=== PATIENT | male | born 1990 | race Caucasian/White ===

== ENCOUNTER 2016-10-10 22:35 | Inpatient (IN) ==
[2016-10-10 23:33] LABS: Allen Test Positive
[2016-10-10 23:36] LABS: ABG Base Excess 9.4 MMOL/L (-2.5-2.5); ABG Oxygen Saturation 99.2 % (95-100); ABG PH 7.308 (7.35-7.45); ABG PO2 266.4 MM HG (80-95); ABG TCO2 41.4 MMOL/L (23-27)
[2016-10-10 23:38] LABS: ABG PCO2 79.6 MM HG (35-48)
[2016-10-10 23:40] LABS: Basophils % 0.2 % (0.0-0.8); Eosinophils # 0.2 10*3/uL (0.0-0.87); Eosinophils % 2.8 % (0.00-10.9); Hematocrit 40.8 VOL% (42.0-52.0); Hemoglobin 13.2 GM/DL (14.0-18.0); Immature Granulocytes % 0.2 %; Immature Granulocytes Absolute 0.01 #; Lymphocytes # 1.3 10*3/uL (1.4-4.0); Lymphocytes % 21.5 % (21.2-54.2); Mean Corpuscular HGB Conc 32.4 GM/DL (32-36); Mean Corpuscular Hemoglobin 31 PG (27-34); Mean Corpuscular Volume 96.9 FL (87-102); Mean Platelet Volume 11.5 FL (9.6-12.0); Monocytes # 0.7 10*3/uL (0.11-0.8); Monocytes % 11.8 % (1.7-12.7); Neutrophils # 3.9 10*3/uL (1.4-7.4); Neutrophils % 63.5 % (38.7-73.9); Platelet Count 185 T/CUMM (130-400); Red Blood Count 4.21 MC/CUMM (3.8-5.5); Red Cell Distribution Width 14.5 % (9.3-17.3); White Blood Count 6.1 T/CUMM (4-12)
[2016-10-10 23:49] LABS: Calcium 9.3 MG/DL (8.5-10.1); Magnesium 2.1 MG/DL (1.8-2.4); Osmolality,Calculated 276.7 MOS/KG (273-304); Potassium 4.4 MMOL/L (3.5-5.1)
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
[2016-10-11 00:20] LABS: Troponin I Only 0.066 NG/ML (0.00-0.045)
[2016-10-11] MEDS ORDERED: ACETAMINOPHEN 325 MG TABLET PO PRN (00:37)
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
[2016-10-11 06:56] LABS: Eosinophils # 0.1 10*3/uL (0.0-0.87); Eosinophils % 0.8 % (0.00-10.9); Hematocrit 40.1 VOL% (42.0-52.0); Hemoglobin 13.2 GM/DL (14.0-18.0); Immature Granulocytes % 0.3 %; Immature Granulocytes Absolute 0.04 #; Lymphocytes # 0.9 10*3/uL (1.4-4.0); Lymphocytes % 7.6 % (21.2-54.2); Mean Corpuscular HGB Conc 32.9 GM/DL (32-36); Mean Corpuscular Hemoglobin 32 PG (27-34); Mean Corpuscular Volume 97.1 FL (87-102); Mean Platelet Volume 11.1 FL (9.6-12.0); Monocytes # 1.4 10*3/uL (0.11-0.8); Monocytes % 11.6 % (1.7-12.7); Neutrophils # 9.4 10*3/uL (1.4-7.4); Neutrophils % 79.7 % (38.7-73.9); Platelet Count 178 T/CUMM (130-400); Red Blood Count 4.13 MC/CUMM (3.8-5.5); Red Cell Distribution Width 14.5 % (9.3-17.3); White Blood Count 11.8 T/CUMM (4-12)
[2016-10-11 07:28] LABS: Calcium 9.2 MG/DL (8.5-10.1); Osmolality,Calculated 280.4 MOS/KG (273-304); Potassium 4.4 MMOL/L (3.5-5.1)
[2016-10-11 07:34] LABS: Troponin I Only 0.171 NG/ML (0.00-0.045)
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
--- NOTE | 2016-10-11 07:54 | XRay Report ---
History: Shortness of breath Date: 10/11/2016 Study: Chest x-ray AP portable Comparison exam: 10/10/2016 There is some minor strandy atelectasis/infiltrate in the left retrocardiac region which is slightly increased. The lungs and pleural spaces are otherwise unchanged. There is marked elevation of the right hemidiaphragm which could be related to diaphragmatic paralysis or hernia as discussed previously. The cardiomediastinal silhouette is unchanged. The pulmonary vasculature is not engorged. Osseous structures are unchanged. Spinal rods overlie the thoracolumbar levels where visualized as before. Impression: Slightly increased left lower lobe atelectasis compared to the previous study. Otherwise unchanged PROCEDURE INTERPRETED AT [facility] DEPARTMENT OF RADIOLOGY Final Report Signed by: Dr. Marissa Silva
[2016-10-11 09:16] LABS: ABG Base Excess 10.3 MMOL/L (-2.5-2.5); ABG Oxygen Saturation 96.5 % (95-100); ABG PH 7.341 (7.35-7.45); ABG PO2 91.4 MM HG (80-95); ABG TCO2 34.9 MMOL/L (23-27); Allen Test Positive
[2016-10-11 09:18] LABS: ABG PCO2 73.4 MM HG (35-48)
[2016-10-11] MEDS: DIVALPROEX SPRINKLE 125 MG CAPSULE PO SCH ×2 (09:53→21:02)
[2016-10-11] MEDS: amLODIPine 2.5 MG TABLET PO SCH ×2 (09:55→18:16)
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
--- NOTE | 2016-10-11 10:03 | EKG Report ---
Stationary ECG Study [facility] ER Test Date: 10/10/2016 10:47:56 PM Pat Name: DANIS NICHOLE Department: Room: 516 Gender: M Office Aide: : 1990 Requested by: Jyay Woodward Order Number: [id number] Reading MD: CARMELINA HERRERA Intervals [place] Rate: 97 P: 38 VA: 138 QRS: 93 QRSD: 82 T: 83 QT: 326 QTc: 381 Interpretive Statements SINUS RHYTHM BORDERLINE RIGHT AXIS DEVIATION EARLY REPOLARIZATION Electronically Signed On 10-13-16 15:42:00 CDT by CARMELINA HERRERA [email or web address]
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
[2016-10-11 13:10] LABS: Troponin I Only 0.065 NG/ML (0.00-0.045)
[2016-10-11] MEDS: acetaZOLAMIDE 250 MG TABLET PO SCH (13:14)
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
[2016-10-12 03:20] LABS: Allen Test Positive
[2016-10-12 03:27] LABS: ABG Base Excess 8.7 MMOL/L (-2.5-2.5); ABG HCO3 32.4 MMOL/L (20-26); ABG Oxygen Saturation 95.6 % (95-100); ABG PH 7.261 (7.35-7.45); ABG PO2 88.4 MM HG (80-95); ABG TCO2 35.9 MMOL/L (23-27)
[2016-10-12 04:15] LABS: ABG PCO2 89.5 MM HG (35-48)
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
[2016-10-12] MEDS: acetaZOLAMIDE 250 MG TABLET PO SCH (10:09)
[2016-10-12] MEDS: amLODIPine 2.5 MG TABLET PO SCH (10:09)
[2016-10-12] MEDS: DIVALPROEX SPRINKLE 125 MG CAPSULE PO SCH ×2 (10:09→20:55)
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
[2016-10-12 16:11] LABS: ABG Base Excess 9.9 MMOL/L (-2.5-2.5); ABG HCO3 39.5 MMOL/L (20-26); ABG Oxygen Saturation 94.2 % (95-100); ABG PH 7.304 (7.35-7.45); Allen Test Positive
[2016-10-12 16:12] LABS: ABG PCO2 81.4 MM HG (35-48)
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
[2016-10-13 03:50] LABS: ABG Base Excess 8.9 MMOL/L (-2.5-2.5); ABG HCO3 32.6 MMOL/L (20-26); ABG PH 7.338 (7.35-7.45); ABG TCO2 33.6 MMOL/L (23-27); Allen Test Positive; Pt O2 Delivery Device BIPAP
[2016-10-13 04:03] LABS: ABG PCO2 70.1 MM HG (35-48)
[2016-10-13 06:08] LABS: Basophils % 0.1 % (0.0-0.8); Eosinophils # 0.1 10*3/uL (0.0-0.87); Eosinophils % 1.8 % (0.00-10.9); Hematocrit 37.4 VOL% (42.0-52.0); Hemoglobin 11.9 GM/DL (14.0-18.0); Immature Granulocytes % 0.4 %; Immature Granulocytes Absolute 0.03 #; Lymphocytes # 1.4 10*3/uL (1.4-4.0); Lymphocytes % 18.7 % (21.2-54.2); Mean Corpuscular HGB Conc 31.8 GM/DL (32-36); Mean Corpuscular Hemoglobin 32 PG (27-34); Mean Corpuscular Volume 98.9 FL (87-102); Mean Platelet Volume 11.9 FL (9.6-12.0); Monocytes # 1.2 10*3/uL (0.11-0.8); Monocytes % 15.7 % (1.7-12.7); Neutrophils # 4.6 10*3/uL (1.4-7.4); Neutrophils % 63.3 % (38.7-73.9); Platelet Count 170 T/CUMM (130-400); Red Blood Count 3.78 MC/CUMM (3.8-5.5); Red Cell Distribution Width 14.8 % (9.3-17.3); White Blood Count 7.3 T/CUMM (4-12)
[2016-10-13 06:33] LABS: Eosinophils 2 % (0-10); Hypochromasia 1+; Lymphocytes 11 % (20-55); Ovalocytes Slight; Platelet Estimate Normal; Segmented Neutrophils 74 % (50-85); Total Cells Counted 100
[2016-10-13 06:39] LABS: Calcium 8.8 MG/DL (8.5-10.1); Magnesium 2.1 MG/DL (1.8-2.4); Osmolality,Calculated 280.5 MOS/KG (273-304); Potassium 4.3 MMOL/L (3.5-5.1)
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
--- NOTE | 2016-10-13 08:21 | XRay Report ---
XR chest 1V portable Indication: Pneumonia, hypoxia Comparison: None Technique: Single frontal view of the chest. Findings: The cardiomediastinal silhouette is stable in configuration. Continued prominence of the pulmonary trunk suggesting pulmonary arterial hypertension. Minimal increased aeration of the bilateral lungs. There is significant volume loss redemonstrated within the right lung with right infrahilar/basilar atelectasis/consolidation. Minimal left basilar atelectasis suggested. Visualized osseous and surrounding soft tissue structures appear grossly unchanged. Multilevel spinal hardware. IMPRESSION: As above. PROCEDURE INTERPRETED AT [facility] DEPARTMENT OF RADIOLOGY Final Report Signed by: Dr Silver Jonas
[2016-10-13] MEDS: amLODIPine 2.5 MG TABLET PO SCH (09:07)
[2016-10-13] MEDS: DIVALPROEX SPRINKLE 125 MG CAPSULE PO SCH (09:07)
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
[2016-10-13 11:30] VITALS: BP 114/66
--- NOTE | 2016-10-13 13:10 | Sleep Medicine Progress Note ---
Assessment and Plan (1) Chronic CO2 retainer Status: Chronic Assessment and plan: Patient seems to benefit from trilogy respiratory therapy for his chronic respiratory failure from both restrictive lung disease from neuromuscular disease, scoliosis, and paralyzed right hemidiaphragm. Follow-up will be with Dr. Montalvo. End-tidal CO2 monitoring can be done through [facility] on follow-up. Current Visit: Yes Sleep Medicine Subjective Interval history: Patient slept with trilogy over 6 hours last night. According to his mom, he slept very well. She was surprised at how well he slept with it. This is certainly very encouraging. This device should help significantly with his chronic respiratory failure and could be utilized long-term. He has significant underlying health issues of pulmonary hypertension, chronic respiratory failure, neuromuscular disease with a combination of scoliosis and a paralyzed right hemidiaphragm. This therapy may do very well for him. Exam (Progress Note) - Constitutional Vitals: Period Temp Pulse Resp BP Sys/Ya Pulse Ox Last 24 Hr 96.6 F-98.5 F 84-105 18-20 110-124/63-69 89-96 Exam: Alert and responsive and engaging today. Chest exam with fair air movement on the left with no significant rhonchi or wheeze. Cardiac exam reveals a regular rhythm without obvious murmur. Abdomen soft nontender extremities without increased edema. Results - Labs CBC & BMP: 10/13/16 04:35 10/13/16 04:35 Labs: ABGs today show improved oxygenation and decrease in PCO2. This certainly may reflect benefit of trilogy respirator overnight. I would recommend continuing with this therapy indefinitely. He clearly seems to have benefited from this intervention. Specialty Discharge - Follow Up or Referrals
--- NOTE | 2016-10-13 14:20 | Event Note ---
Ronny Tamayo, [facility], acting as scribe for Dr. Johnny Montalvo Mr. Jay is in need of non-invasive mechanical ventilation with full face mask. The ventilator is to be used at [facility] during sleep, as well as during the day as needed. He has a thoracic disorder (scoliosis) and paralysis of the right hemidiaphragm. Due to these diagnoses, he has been experiencing chronic respiratory failure with a PCO2 of 73.4. He has tried Bipap therapy in the past and was not able to tolerate it. He was tried on non-invasive mechanical ventilation last night while in the hospital with AVAPS AE setting and he tolerated this very well. He stayed on the machine for over 6 hours. Because of his toleration of the mode of ventilation, we will discharge him home with the non-invasive ventilator.
== END 2016-10-13 13:10 | disposition home or self-care (01) | DRG 923 ==
LOC: EDBD → EDUNIT# → N.EDINP 22:35 → N.ED 22:35 → SUATTDRO 10-11 01:39 → N.5E 10-11 01:40
PROVIDERS: ADMIT Internal Medicine; ATTEND Internal Medicine

== ENCOUNTER 2017-02-26 07:00 | Inpatient (IN) ==
[2017-02-26] MEDS ORDERED: SENNA 8.6 MG TABLET PO PRN (17:22)
[2017-02-26] MEDS ORDERED: DEXTROSE 50% 25 GM/50 ML VIAL IV PRN (17:32)
[2017-02-26] MEDS ORDERED: DEXTROSE 10% 1,000 ML IV PRN (17:32)
[2017-02-26] MEDS ORDERED: GLUCAGON 1 MG VIAL IM PRN (17:32)
[2017-02-26] MEDS ORDERED: TRACE ELEMENTS (5) 1 ML, MULTIVITAMIN INJ 10 ML in AMINO ACIDS/DEXT/LYTES 5-15% 2,000 ML IV SCH (19:00)
[2017-02-26] MEDS: CEFEPIME 1,000 MG in SYRINGE 1 EACH IV SCH (19:10)
[2017-02-26] MEDS: VALPROIC ACID INJ 250 MG in SODIUM CHLORIDE 0.9% 100 ML IV SCH (20:50)
[2017-02-26] MEDS: CHLORHEXIDINE 0.12% ORAL RINSE 60 ML BOTTLE SWISH/SPIT SCH (21:45)
[2017-02-26] MEDS: PANTOPRAZOLE 40 MG VIAL IV SCH (21:45)
[2017-02-26] MEDS: ACETAMINOPHEN 325 MG/10.15 ML UDCUP PO PRN (21:46)
[2017-02-26] MEDS: INSULIN REGULAR 100 UNIT/ML SUBCUT SCH (23:30)
[2017-02-27] MEDS: CEFEPIME 1,000 MG in SYRINGE 1 EACH IV SCH ×3 (02:08→18:08)
[2017-02-27 05:17] LABS: ABG Base Excess 10.1 MMOL/L (-2.5-2.5); ABG HCO3 33.8 MMOL/L (20-26); ABG Oxygen Saturation 95.4 % (95-100); ABG PCO2 48.2 MM HG (35-48); ABG PO2 74.5 MM HG (80-95); ABG TCO2 32.3 MMOL/L (23-27); Pt O2 Delivery Device Ventilator
[2017-02-27] MEDS: VALPROIC ACID INJ 250 MG in SODIUM CHLORIDE 0.9% 100 ML IV SCH ×3 (05:17→20:14)
[2017-02-27] MEDS: INSULIN REGULAR 100 UNIT/ML SUBCUT SCH ×4 (05:17→23:24)
[2017-02-27 05:21] LABS: Calcium 8.5 MG/DL (8.5-10.1); Magnesium 1.9 MG/DL (1.8-2.4); Osmolality,Calculated 282.4 MOS/KG (273-304); Potassium 4.8 MMOL/L (3.5-5.1); Prealbumin 13.4 MG/DL (20-40)
[2017-02-27 06:52] LABS: Albumin 1.8 G/DL (3.4-5.0); Bilirubin,Direct 0.28 MG/DL (0.0-0.20); Bilirubin,Indirect 0.7 MG/DL (0.0-1.0); Total Protein 5.1 G/DL (6.4-8.3)
[2017-02-27] MEDS: ALBUTEROL/IPRATROPIUM 3 ML NEB RESP TX SCH ×4 (07:09→18:33)
[2017-02-27] MEDS: ZINC OXIDE PASTE 113 GM TUBE TOP PRN (07:09)
[2017-02-27] MEDS: ALBUMIN 25% 25 GM in PREMIX 1 EACH IV SCH ×3 (07:12→22:52)
[2017-02-27 07:43] LABS: Creatinine,Urine Random 122 MG/DL; Urea Nitrogen, Urine Random 1895 MG/DL
[2017-02-27 07:47] LABS: Basophils % 0.2 % (0.0-0.8); Eosinophils # 0.2 10*3/uL (0.0-0.87); Eosinophils % 1.6 % (0.00-10.9); Hematocrit 25.2 VOL% (42.0-52.0); Hemoglobin 8.2 GM/DL (14.0-18.0); Immature Granulocytes % 1.5 %; Immature Granulocytes Absolute 0.17 #; Lymphocytes # 1.1 10*3/uL (1.4-4.0); Lymphocytes % 9.3 % (21.2-54.2); Mean Corpuscular HGB Conc 32.5 GM/DL (32-36); Mean Corpuscular Hemoglobin 29 PG (27-34); Mean Corpuscular Volume 90.3 FL (87-102); Mean Platelet Volume 11.2 FL (9.6-12.0); Monocytes # 1.1 10*3/uL (0.11-0.8); Monocytes % 9.9 % (1.7-12.7); Neutrophils # 8.7 10*3/uL (1.4-7.4); Neutrophils % 77.5 % (38.7-73.9); Platelet Count 564 T/CUMM (130-400); Red Blood Count 2.79 MC/CUMM (3.8-5.5); Red Cell Distribution Width 15.5 % (9.3-17.3); White Blood Count 11.3 T/CUMM (4-12)
[2017-02-27] MEDS: PANTOPRAZOLE 40 MG VIAL IV SCH ×2 (09:53→20:15)
[2017-02-27] MEDS: FLUCONAZOLE INJ 400 MG in PREMIX 1 EACH IV SCH (09:53)
[2017-02-27] MEDS: CHLORHEXIDINE 0.12% ORAL RINSE 60 ML BOTTLE SWISH/SPIT SCH ×2 (09:53→20:15)
[2017-02-27] MEDS: FUROSEMIDE 20 MG/2 ML VIAL IV SCH ×2 (09:53→18:02)
[2017-02-27] MEDS: ACETAMINOPHEN 325 MG/10.15 ML UDCUP PO PRN ×2 (09:55→20:17)
[2017-02-27] MEDS: NYSTATIN POWDER 15 GM BOTTLE TOP SCH ×2 (13:23→20:15)
[2017-02-27] MEDS: DESITIN 4OZ/NYSTATIN 15 GRAM MIXTURE PASTE TOP SCH ×2 (13:23→20:16)
[2017-02-27] MEDS: FAT EMULSION 20% 250 ML IV SCH (14:09)
[2017-02-27] MEDS: ELECTROLYTE IV SCH (20:14)
[2017-02-27] MEDS: MULTIVITAMIN IV SCH (20:14)
[2017-02-27] MEDS: TRACE ELEMENTS IV SCH (20:14)
[2017-02-27] MEDS: [UNRECOGNIZED DRUG - OTHER] IV SCH (20:14)
[2017-02-27] MEDS ORDERED: diphenhydrAMINE 50 MG/1 ML VIAL IV PRN (22:23)
[2017-02-27] MEDS ORDERED: traMADol 50 MG TABLET PO PRN (22:31)
[2017-02-28] MEDS: LORazepam 2 MG/1 ML VIAL IV PRN ×2 (00:06→12:00)
[2017-02-28] MEDS: CEFEPIME 1,000 MG in SYRINGE 1 EACH IV SCH ×3 (01:45→18:12)
[2017-02-28 04:19] LABS: VBG HCO3 33.8 MEQ/L (24-28); VBG Oxygen Saturation 99.2 %; VBG PCO2 35.2 MMHG (41-51); VBG PH 7.576
[2017-02-28 04:24] LABS: Basophils % 0.1 % (0.0-0.8); Eosinophils # 0.2 10*3/uL (0.0-0.87); Eosinophils % 1.6 % (0.00-10.9); Hematocrit 24.9 VOL% (42.0-52.0); Hemoglobin 8.1 GM/DL (14.0-18.0); Immature Granulocytes % 0.7 %; Immature Granulocytes Absolute 0.07 #; Lymphocytes # 1.1 10*3/uL (1.4-4.0); Lymphocytes % 10.8 % (21.2-54.2); Mean Corpuscular HGB Conc 32.5 GM/DL (32-36); Mean Corpuscular Hemoglobin 29 PG (27-34); Mean Corpuscular Volume 88.9 FL (87-102); Monocytes # 1.1 10*3/uL (0.11-0.8); Neutrophils # 7.6 10*3/uL (1.4-7.4); Neutrophils % 75.8 % (38.7-73.9); Platelet Count 538 T/CUMM (130-400); Red Cell Distribution Width 15.3 % (9.3-17.3)
[2017-02-28 04:32] LABS: INR 1.2; PT Patient Result 12.9 SECS
[2017-02-28 04:56] LABS: Calcium 9.2 MG/DL (8.5-10.1); Magnesium 1.7 MG/DL (1.8-2.4); Osmolality,Calculated 280.4 MOS/KG (273-304); Potassium 4.1 MMOL/L (3.5-5.1)
[2017-02-28] MEDS: VALPROIC ACID INJ 250 MG in SODIUM CHLORIDE 0.9% 100 ML IV SCH ×3 (05:08→21:08)
[2017-02-28] MEDS: INSULIN REGULAR 100 UNIT/ML SUBCUT SCH ×3 (05:08→18:11)
[2017-02-28] MEDS: ALBUMIN 25% 25 GM in PREMIX 1 EACH IV SCH ×3 (06:21→23:31)
[2017-02-28] MEDS: ALBUTEROL/IPRATROPIUM 3 ML NEB RESP TX SCH ×4 (08:00→19:18)
[2017-02-28] MEDS ORDERED: ACETAMINOPHEN 325 MG SUPP RECTAL PRN ×2 (08:14→08:21)
[2017-02-28] MEDS ORDERED: ACETAMINOPHEN 650 MG SUPP RECTAL ONE (08:31)
[2017-02-28] MEDS ORDERED: PROPOFOL 200 MG/20 ML VIAL IV ONE (09:00)
[2017-02-28] MEDS ORDERED: LIDOCAINE 100 MG/5 ML SYRINGE ONE (09:00)
[2017-02-28] MEDS: DESITIN 4OZ/NYSTATIN 15 GRAM MIXTURE PASTE TOP SCH (09:00)
[2017-02-28] MEDS: FLUCONAZOLE INJ 400 MG in PREMIX 1 EACH IV SCH (09:50)
[2017-02-28] MEDS: SODIUM CHLORIDE 0.9% 1,000 ML IV SCH (09:51)
[2017-02-28] MEDS: CHLORHEXIDINE 0.12% ORAL RINSE 60 ML BOTTLE SWISH/SPIT SCH ×2 (09:51→21:06)
[2017-02-28] MEDS: PANTOPRAZOLE 40 MG VIAL IV SCH ×2 (09:51→20:42)
[2017-02-28] MEDS: NYSTATIN POWDER 15 GM BOTTLE TOP SCH (09:51)
[2017-02-28] MEDS: FUROSEMIDE 20 MG/2 ML VIAL IV SCH (09:53)
[2017-02-28] MEDS ORDERED: ACETAMINOPHEN 650 MG SUPP RECTAL PRN (10:00)
[2017-02-28] MEDS: fentaNYL 100 MCG/2 ML VIAL IV PRN ×2 (11:59→16:45)
[2017-02-28] MEDS: FAT EMULSION 20% 250 ML IV SCH (15:05)
[2017-02-28 15:07] LABS: Apearance,Urine CLEAR (Clear); Bilirubin,Urine Negative (Negative); Blood, Urine Negative (Negative); Glucose,Urine (UA) Negative (Negative); Ketones,Urine Negative (Negative); Mucus,Urine Occasional /LPF (Occasional); Nitrite,Urine Negative (Negative); Protein,Urine 30 MG/DL; RBC,Urine 6 /HPF (0-4); Urine Specific Gravity 1.033 (1.001-1.035); Urine Urobilinogen < 2.0 EU/DL (0.2-1.0); WBC,Urine 3 /HPF (0-6)
[2017-02-28 15:08] LABS: Urine Color Dark yellow (Yellow)
[2017-02-28] MEDS: ELECTROLYTE IV SCH (17:27)
[2017-02-28] MEDS: MULTIVITAMIN IV SCH (17:27)
[2017-02-28] MEDS: [UNRECOGNIZED DRUG - OTHER] IV SCH (17:27)
[2017-02-28] MEDS: TRACE ELEMENTS IV SCH (17:27)
[2017-02-28] MEDS: ONDANSETRON 4 MG/2 ML VIAL IV PRN (18:13)
[2017-02-28] MEDS: SIMETHICONE CHEW 80 MG TABLET PO SCH ×2 (20:42→23:32)
[2017-03-01] MEDS: CEFEPIME 1,000 MG in SYRINGE 1 EACH IV SCH ×3 (02:25→17:25)
[2017-03-01] MEDS: INSULIN REGULAR 100 UNIT/ML SUBCUT SCH ×2 (02:27→06:55)
[2017-03-01] MEDS: fentaNYL 100 MCG/2 ML VIAL IV PRN ×2 (02:30→19:42)
[2017-03-01] MEDS: LORazepam 2 MG/1 ML VIAL IV PRN ×3 (02:54→15:42)
[2017-03-01 04:28] LABS: VBG Base Excess 5.8 MEQ/L (0-4); VBG Oxygen Saturation 79.8 %; VBG PCO2 49.1 MMHG (41-51); VBG PH 7.418; VBG PO2 41.8 MMHG (17-40)
[2017-03-01 04:33] LABS: Basophils % 0.1 % (0.0-0.8); Eosinophils # 0.2 10*3/uL (0.0-0.87); Eosinophils % 1.8 % (0.00-10.9); Hematocrit 24.3 VOL% (42.0-52.0); Hemoglobin 7.7 GM/DL (14.0-18.0); Immature Granulocytes % 0.7 %; Immature Granulocytes Absolute 0.07 #; Lymphocytes # 0.9 10*3/uL (1.4-4.0); Mean Corpuscular HGB Conc 31.7 GM/DL (32-36); Mean Corpuscular Hemoglobin 29 PG (27-34); Mean Corpuscular Volume 92.7 FL (87-102); Mean Platelet Volume 10.8 FL (9.6-12.0); Monocytes # 1.1 10*3/uL (0.11-0.8); Monocytes % 10.9 % (1.7-12.7); Neutrophils # 7.6 10*3/uL (1.4-7.4); Neutrophils % 77.5 % (38.7-73.9); Platelet Count 526 T/CUMM (130-400); Red Blood Count 2.62 MC/CUMM (3.8-5.5); Red Cell Distribution Width 15.6 % (9.3-17.3); White Blood Count 9.9 T/CUMM (4-12)
[2017-03-01 05:15] LABS: Folate 23.9 NG/ML (5.4-24.0)
[2017-03-01] MEDS: SODIUM CHLORIDE 0.9% 1,000 ML IV SCH ×2 (05:24→21:15)
[2017-03-01] MEDS: VALPROIC ACID INJ 250 MG in SODIUM CHLORIDE 0.9% 100 ML IV SCH ×3 (05:54→21:00)
[2017-03-01] MEDS: DESITIN 4OZ/NYSTATIN 15 GRAM MIXTURE PASTE TOP SCH ×3 (06:35→21:02)
[2017-03-01] MEDS: NYSTATIN POWDER 15 GM BOTTLE TOP SCH ×3 (06:35→21:01)
[2017-03-01] MEDS: ALBUTEROL/IPRATROPIUM 3 ML NEB RESP TX SCH ×4 (08:43→19:42)
[2017-03-01] MEDS: SIMETHICONE CHEW 80 MG TABLET PO SCH ×6 (09:06→21:00)
[2017-03-01] MEDS: PANTOPRAZOLE 40 MG VIAL IV SCH ×2 (09:06→20:59)
[2017-03-01] MEDS: FLUCONAZOLE INJ 400 MG in PREMIX 1 EACH IV SCH (09:06)
[2017-03-01] MEDS: CHLORHEXIDINE 0.12% ORAL RINSE 60 ML BOTTLE SWISH/SPIT SCH ×2 (09:07→21:01)
[2017-03-01] MEDS: ONDANSETRON 4 MG/2 ML VIAL IV PRN ×2 (09:51→20:05)
[2017-03-01 11:20] LABS: Calcium 9.5 MG/DL (8.5-10.1); Magnesium 1.9 MG/DL (1.8-2.4); Osmolality,Calculated 282.4 MOS/KG (273-304); Potassium 4.3 MMOL/L (3.5-5.1)
[2017-03-01] MEDS: IRON SUCROSE 200 MG in SODIUM CHLORIDE 0.9% 100 ML IV SCH (11:36)
[2017-03-01] MEDS: FAT EMULSION 20% 250 ML IV SCH (14:11)
[2017-03-01] MEDS: ALBUMIN 25% 25 GM in PREMIX 1 EACH IV SCH ×2 (15:03→22:26)
[2017-03-01] MEDS ORDERED: DEXTROSE 10% 1,000 ML IV PRN (17:00)
[2017-03-01] MEDS: TRACE ELEMENTS IV SCH (17:26)
[2017-03-01] MEDS: [UNRECOGNIZED DRUG - OTHER] IV SCH (17:26)
[2017-03-01] MEDS: MULTIVITAMIN IV SCH (17:26)
[2017-03-01] MEDS: ELECTROLYTE IV SCH (17:26)
[2017-03-01] MEDS ORDERED: SIMETHICONE CHEW 80 MG TABLET PO PRN (20:26)
[2017-03-01] MEDS: ZINC OXIDE PASTE 113 GM TUBE TOP PRN (21:02)
[2017-03-02] MEDS: LORazepam 2 MG/1 ML VIAL IV PRN ×3 (00:32→20:58)
[2017-03-02] MEDS: CEFEPIME 1,000 MG in SYRINGE 1 EACH IV SCH ×3 (02:38→18:03)
[2017-03-02 02:54] LABS: VBG Base Excess 3.1 MEQ/L (0-4); VBG HCO3 26.9 MEQ/L (24-28); VBG Oxygen Saturation 77.9 %; VBG PCO2 49.6 MMHG (41-51); VBG PH 7.374; VBG PO2 44.1 MMHG (17-40)
[2017-03-02 03:03] LABS: Basophils % 0.1 % (0.0-0.8); Eosinophils # 0.2 10*3/uL (0.0-0.87); Eosinophils % 1.5 % (0.00-10.9); Hematocrit 26.6 VOL% (42.0-52.0); Hemoglobin 8.4 GM/DL (14.0-18.0); Immature Granulocytes % 0.6 %; Immature Granulocytes Absolute 0.06 #; Lymphocytes # 0.9 10*3/uL (1.4-4.0); Lymphocytes % 8.2 % (21.2-54.2); Mean Corpuscular HGB Conc 31.6 GM/DL (32-36); Mean Corpuscular Hemoglobin 30 PG (27-34); Mean Corpuscular Volume 93.7 FL (87-102); Mean Platelet Volume 10.8 FL (9.6-12.0); Monocytes % 9.2 % (1.7-12.7); Neutrophils # 8.3 10*3/uL (1.4-7.4); Neutrophils % 80.4 % (38.7-73.9); Platelet Count 472 T/CUMM (130-400); Red Blood Count 2.84 MC/CUMM (3.8-5.5); Red Cell Distribution Width 15.2 % (9.3-17.3); White Blood Count 10.4 T/CUMM (4-12)
[2017-03-02 03:15] LABS: Magnesium 1.9 MG/DL (1.8-2.4); Osmolality,Calculated 281.4 MOS/KG (273-304); Potassium 3.9 MMOL/L (3.5-5.1)
[2017-03-02] MEDS: VALPROIC ACID INJ 250 MG in SODIUM CHLORIDE 0.9% 100 ML IV SCH ×3 (06:17→20:29)
[2017-03-02] MEDS: ALBUTEROL/IPRATROPIUM 3 ML NEB RESP TX SCH ×4 (07:33→18:32)
[2017-03-02] MEDS: PANTOPRAZOLE 40 MG VIAL IV SCH ×2 (09:49→20:24)
[2017-03-02] MEDS: SIMETHICONE CHEW 80 MG TABLET PO SCH ×4 (09:50→20:29)
[2017-03-02] MEDS: ALBUMIN 25% 25 GM in PREMIX 1 EACH IV SCH ×2 (09:50→18:03)
[2017-03-02] MEDS: NYSTATIN POWDER 15 GM BOTTLE TOP SCH ×2 (09:50→20:30)
[2017-03-02] MEDS: CHLORHEXIDINE 0.12% ORAL RINSE 60 ML BOTTLE SWISH/SPIT SCH ×2 (09:53→20:29)
[2017-03-02] MEDS: FLUCONAZOLE INJ 400 MG in PREMIX 1 EACH IV SCH (09:54)
[2017-03-02] MEDS: IRON SUCROSE 200 MG in SODIUM CHLORIDE 0.9% 100 ML IV SCH (09:54)
[2017-03-02] MEDS: DESITIN 4OZ/NYSTATIN 15 GRAM MIXTURE PASTE TOP SCH ×2 (09:54→20:29)
[2017-03-02] MEDS: ONDANSETRON 4 MG/2 ML VIAL IV PRN ×2 (10:29→20:23)
[2017-03-02] MEDS: FAT EMULSION 20% 250 ML IV SCH (14:19)
[2017-03-02] MEDS: MULTIVITAMIN IV SCH (18:02)
[2017-03-02] MEDS: ELECTROLYTE IV SCH (18:02)
[2017-03-02] MEDS: [UNRECOGNIZED DRUG - OTHER] IV SCH (18:02)
[2017-03-02] MEDS: TRACE ELEMENTS IV SCH (18:02)
[2017-03-02] MEDS: SODIUM CHLORIDE 0.9% 1,000 ML IV SCH (19:21)
[2017-03-03] MEDS: CEFEPIME 1,000 MG in SYRINGE 1 EACH IV SCH ×3 (01:28→18:33)
[2017-03-03] MEDS: ALBUMIN 25% 25 GM in PREMIX 1 EACH IV SCH ×2 (01:28→14:46)
[2017-03-03] MEDS: SODIUM CHLORIDE 0.9% 1,000 ML IV SCH ×2 (04:39→14:46)
[2017-03-03] MEDS: VALPROIC ACID INJ 250 MG in SODIUM CHLORIDE 0.9% 100 ML IV SCH ×3 (05:33→20:46)
[2017-03-03] MEDS: ALBUTEROL/IPRATROPIUM 3 ML NEB RESP TX SCH ×4 (07:21→19:03)
[2017-03-03] MEDS: FLUCONAZOLE INJ 400 MG in PREMIX 1 EACH IV SCH (08:55)
[2017-03-03] MEDS: IRON SUCROSE 200 MG in SODIUM CHLORIDE 0.9% 100 ML IV SCH (08:55)
[2017-03-03] MEDS: PANTOPRAZOLE 40 MG VIAL IV SCH ×2 (08:56→20:46)
[2017-03-03] MEDS: SIMETHICONE CHEW 80 MG TABLET PO SCH ×4 (08:57→20:46)
[2017-03-03] MEDS: NYSTATIN POWDER 15 GM BOTTLE TOP SCH ×2 (10:46→20:46)
[2017-03-03] MEDS: DESITIN 4OZ/NYSTATIN 15 GRAM MIXTURE PASTE TOP SCH ×2 (10:47→20:46)
[2017-03-03] MEDS: CHLORHEXIDINE 0.12% ORAL RINSE 60 ML BOTTLE SWISH/SPIT SCH ×2 (10:47→20:45)
[2017-03-03] MEDS: LORazepam 2 MG/1 ML VIAL IV PRN (11:50)
[2017-03-03] MEDS: FAT EMULSION 20% 250 ML IV SCH (13:25)
[2017-03-03] MEDS ORDERED: ALBUMIN 25% 25 GM in PREMIX 1 EACH IV ONE (15:00)
[2017-03-03] MEDS: [UNRECOGNIZED DRUG - OTHER] IV SCH (18:33)
[2017-03-03] MEDS: TRACE ELEMENTS IV SCH (18:33)
[2017-03-03] MEDS: MULTIVITAMIN IV SCH (18:33)
[2017-03-03] MEDS: ELECTROLYTE IV SCH (18:33)
[2017-03-04] MEDS: CEFEPIME 1,000 MG in SYRINGE 1 EACH IV SCH ×3 (01:55→17:32)
[2017-03-04] MEDS: LORazepam 2 MG/1 ML VIAL IV PRN ×2 (02:11→23:36)
[2017-03-04] MEDS: VALPROIC ACID INJ 250 MG in SODIUM CHLORIDE 0.9% 100 ML IV SCH ×3 (04:55→21:27)
[2017-03-04] MEDS: SODIUM CHLORIDE 0.9% 1,000 ML IV SCH (04:55)
[2017-03-04] MEDS: ALBUTEROL/IPRATROPIUM 3 ML NEB RESP TX SCH ×4 (07:21→19:36)
[2017-03-04] MEDS: PANTOPRAZOLE 40 MG VIAL IV SCH ×2 (08:34→21:26)
[2017-03-04] MEDS: FLUCONAZOLE INJ 400 MG in PREMIX 1 EACH IV SCH (08:35)
[2017-03-04] MEDS: SIMETHICONE CHEW 80 MG TABLET PO SCH ×4 (08:37→21:26)
[2017-03-04] MEDS: DESITIN 4OZ/NYSTATIN 15 GRAM MIXTURE PASTE TOP SCH ×2 (08:49→21:28)
[2017-03-04] MEDS: NYSTATIN POWDER 15 GM BOTTLE TOP SCH ×2 (08:50→21:27)
[2017-03-04] MEDS: CHLORHEXIDINE 0.12% ORAL RINSE 60 ML BOTTLE SWISH/SPIT SCH ×2 (09:07→21:27)
[2017-03-04] MEDS: IRON SUCROSE 200 MG in SODIUM CHLORIDE 0.9% 100 ML IV SCH (10:42)
[2017-03-04] MEDS: FAT EMULSION 20% 250 ML IV SCH (13:56)
[2017-03-04] MEDS: [UNRECOGNIZED DRUG - OTHER] IV SCH (18:00)
[2017-03-04] MEDS: ELECTROLYTE IV SCH (18:00)
[2017-03-04] MEDS: MULTIVITAMIN IV SCH (18:00)
[2017-03-04] MEDS: TRACE ELEMENTS IV SCH (18:00)
[2017-03-04] MEDS: ZINC OXIDE PASTE 113 GM TUBE TOP PRN (21:27)
[2017-03-05] MEDS: CEFEPIME 1,000 MG in SYRINGE 1 EACH IV SCH ×3 (02:16→19:03)
[2017-03-05 04:57] LABS: Basophils % 0.2 % (0.0-0.8); Eosinophils # 0.4 10*3/uL (0.0-0.87); Eosinophils % 4.8 % (0.00-10.9); Immature Granulocytes % 1.2 %; Immature Granulocytes Absolute 0.11 #; Lymphocytes # 0.9 10*3/uL (1.4-4.0); Lymphocytes % 9.2 % (21.2-54.2); Mean Corpuscular HGB Conc 32.4 GM/DL (32-36); Mean Corpuscular Hemoglobin 30 PG (27-34); Mean Corpuscular Volume 92.7 FL (87-102); Mean Platelet Volume 10.5 FL (9.6-12.0); Monocytes # 1.1 10*3/uL (0.11-0.8); Monocytes % 11.5 % (1.7-12.7); Neutrophils # 6.7 10*3/uL (1.4-7.4); Neutrophils % 73.1 % (38.7-73.9); Platelet Count 503 T/CUMM (130-400); Red Cell Distribution Width 15.6 % (9.3-17.3); White Blood Count 9.2 T/CUMM (4-12)
[2017-03-05 04:58] LABS: VBG Base Excess 0.8 MEQ/L (0-4); VBG HCO3 25.4 MEQ/L (24-28); VBG Oxygen Saturation 95.6 %; VBG PCO2 40.6 MMHG (41-51); VBG PH 7.415; VBG PO2 75.2 MMHG (17-40)
[2017-03-05 05:08] LABS: INR 1.2; PT Patient Result 12.7 SECS; Partial Thromboplastin Time 33.6 SECS (0-40)
[2017-03-05 05:17] LABS: Magnesium 1.9 MG/DL (1.8-2.4)
[2017-03-05 05:18] LABS: Albumin 3.7 G/DL (3.4-5.0); Calcium 9.8 MG/DL (8.5-10.1); Osmolality,Calculated 278.7 MOS/KG (273-304); Potassium 4.4 MMOL/L (3.5-5.1)
[2017-03-05 05:27] LABS: Hemoglobin 10.7 GM/DL (14.0-18.0); Red Blood Count 3.56 MC/CUMM (3.8-5.5)
[2017-03-05] MEDS: SODIUM CHLORIDE 0.9% 1,000 ML IV SCH ×2 (05:41→16:49)
[2017-03-05] MEDS: VALPROIC ACID INJ 250 MG in SODIUM CHLORIDE 0.9% 100 ML IV SCH ×3 (05:41→20:06)
[2017-03-05] MEDS: ALBUTEROL/IPRATROPIUM 3 ML NEB RESP TX SCH ×4 (07:26→20:05)
[2017-03-05] MEDS: PANTOPRAZOLE 40 MG VIAL IV SCH ×2 (09:12→20:06)
[2017-03-05] MEDS: IRON SUCROSE 200 MG in SODIUM CHLORIDE 0.9% 100 ML IV SCH (09:13)
[2017-03-05] MEDS: DESITIN 4OZ/NYSTATIN 15 GRAM MIXTURE PASTE TOP SCH ×2 (09:30→20:07)
[2017-03-05] MEDS: CHLORHEXIDINE 0.12% ORAL RINSE 60 ML BOTTLE SWISH/SPIT SCH ×2 (10:05→20:06)
[2017-03-05] MEDS: NYSTATIN POWDER 15 GM BOTTLE TOP SCH ×2 (10:05→20:06)
[2017-03-05] MEDS: FLUCONAZOLE INJ 400 MG in PREMIX 1 EACH IV SCH (10:05)
[2017-03-05 11:53] LABS: Apearance,Urine Slightly Hazy (Clear); Bilirubin,Urine Negative (Negative); Blood, Urine Large mg/dL (Negative); Glucose,Urine (UA) Negative (Negative); Ketones,Urine Negative (Negative); Mucus,Urine Occasional /LPF (Occasional); Nitrite,Urine Negative (Negative); Protein,Urine 100 MG/DL; RBC,Urine 3201 /HPF (0-4); Urine Color Amber (Yellow); Urine Specific Gravity 1.025 (1.001-1.035); Urine Urobilinogen < 2.0 EU/DL (0.2-1.0)
[2017-03-05] MEDS: ALBUMIN 25% 25 GM in PREMIX 1 EACH IV SCH ×2 (15:27→20:07)
[2017-03-05] MEDS: SIMETHICONE CHEW 80 MG TABLET PO SCH ×3 (15:32→23:03)
[2017-03-05] MEDS: FAT EMULSION 20% 250 ML IV SCH (16:28)
[2017-03-05] MEDS: LORazepam 2 MG/1 ML VIAL IV PRN ×2 (17:04→23:03)
[2017-03-05] MEDS: MULTIVITAMIN IV SCH (18:57)
[2017-03-05] MEDS: ELECTROLYTE IV SCH (18:57)
[2017-03-05] MEDS: TRACE ELEMENTS IV SCH (18:57)
[2017-03-05] MEDS: [UNRECOGNIZED DRUG - OTHER] IV SCH (18:57)
[2017-03-05 19:34] LABS: Creatinine,Urine Random 69 MG/DL; Urea Nitrogen, Urine Random 1609 MG/DL
[2017-03-06] MEDS: CEFEPIME 1,000 MG in SYRINGE 1 EACH IV SCH ×3 (02:29→18:27)
[2017-03-06 04:25] LABS: Basophils % 0.2 % (0.0-0.8); Eosinophils # 0.4 10*3/uL (0.0-0.87); Eosinophils % 4.8 % (0.00-10.9); Hematocrit 31.3 VOL% (42.0-52.0); Immature Granulocytes Absolute 0.09 #; Lymphocytes # 0.9 10*3/uL (1.4-4.0); Lymphocytes % 10.1 % (21.2-54.2); Mean Corpuscular HGB Conc 31.9 GM/DL (32-36); Mean Corpuscular Hemoglobin 29 PG (27-34); Mean Corpuscular Volume 92.1 FL (87-102); Mean Platelet Volume 10.4 FL (9.6-12.0); Monocytes # 1.1 10*3/uL (0.11-0.8); Monocytes % 11.8 % (1.7-12.7); Neutrophils # 6.5 10*3/uL (1.4-7.4); Neutrophils % 72.1 % (38.7-73.9); Platelet Count 476 T/CUMM (130-400); Red Cell Distribution Width 15.6 % (9.3-17.3)
[2017-03-06 04:50] LABS: Albumin 4.2 G/DL (3.4-5.0); Calcium 9.8 MG/DL (8.5-10.1); Osmolality,Calculated 280.5 MOS/KG (273-304); Potassium 4.3 MMOL/L (3.5-5.1)
[2017-03-06] MEDS: SODIUM CHLORIDE 0.9% 1,000 ML IV SCH (05:07)
[2017-03-06] MEDS: VALPROIC ACID INJ 250 MG in SODIUM CHLORIDE 0.9% 100 ML IV SCH ×3 (05:33→21:21)
[2017-03-06] MEDS: ALBUMIN 25% 25 GM in PREMIX 1 EACH IV SCH ×3 (06:31→21:19)
[2017-03-06] MEDS: ALBUTEROL/IPRATROPIUM 3 ML NEB RESP TX SCH ×4 (07:56→19:55)
[2017-03-06] MEDS: PANTOPRAZOLE 40 MG VIAL IV SCH ×2 (09:58→21:20)
[2017-03-06] MEDS: SIMETHICONE CHEW 80 MG TABLET PO SCH ×4 (09:59→21:20)
[2017-03-06] MEDS: CHLORHEXIDINE 0.12% ORAL RINSE 60 ML BOTTLE SWISH/SPIT SCH ×2 (09:59→21:21)
[2017-03-06] MEDS: DESITIN 4OZ/NYSTATIN 15 GRAM MIXTURE PASTE TOP SCH ×2 (09:59→21:21)
[2017-03-06] MEDS: NYSTATIN POWDER 15 GM BOTTLE TOP SCH ×2 (09:59→21:21)
[2017-03-06] MEDS: FAT EMULSION 20% 250 ML IV SCH (13:59)
[2017-03-06] MEDS: VANCOMYCIN INJ 500 MG in SODIUM CHLORIDE 0.9% 100 ML IV SCH (15:11)
[2017-03-06] MEDS: TRACE ELEMENTS IV SCH (18:21)
[2017-03-06] MEDS: [UNRECOGNIZED DRUG - OTHER] IV SCH (18:21)
[2017-03-06] MEDS: ELECTROLYTE IV SCH (18:21)
[2017-03-06] MEDS: MULTIVITAMIN IV SCH (18:21)
[2017-03-06] MEDS: LORazepam 2 MG/1 ML VIAL IV PRN ×2 (18:39→23:12)
[2017-03-06] MEDS: ONDANSETRON 4 MG/2 ML VIAL IV PRN (19:32)
[2017-03-07] MEDS: fentaNYL 100 MCG/2 ML VIAL IV PRN (01:36)
[2017-03-07] MEDS: CEFEPIME 1,000 MG in SYRINGE 1 EACH IV SCH ×3 (01:36→18:38)
[2017-03-07] MEDS: VANCOMYCIN INJ 500 MG in SODIUM CHLORIDE 0.9% 100 ML IV SCH ×2 (01:37→15:39)
[2017-03-07] MEDS: LORazepam 2 MG/1 ML VIAL IV PRN ×3 (03:05→22:57)
[2017-03-07] MEDS: SODIUM CHLORIDE 0.9% 1,000 ML IV SCH (04:31)
[2017-03-07] MEDS: ALBUMIN 25% 25 GM in PREMIX 1 EACH IV SCH ×3 (04:31→20:35)
[2017-03-07 04:36] LABS: Basophils % 0.1 % (0.0-0.8); Eosinophils # 0.4 10*3/uL (0.0-0.87); Hematocrit 29.3 VOL% (42.0-52.0); Hemoglobin 9.3 GM/DL (14.0-18.0); Immature Granulocytes % 0.7 %; Immature Granulocytes Absolute 0.06 #; Lymphocytes # 0.8 10*3/uL (1.4-4.0); Lymphocytes % 9.3 % (21.2-54.2); Mean Corpuscular HGB Conc 31.7 GM/DL (32-36); Mean Corpuscular Hemoglobin 30 PG (27-34); Monocytes % 12.4 % (1.7-12.7); Neutrophils # 5.9 10*3/uL (1.4-7.4); Neutrophils % 72.5 % (38.7-73.9); Platelet Count 403 T/CUMM (130-400); Red Blood Count 3.15 MC/CUMM (3.8-5.5); Red Cell Distribution Width 15.9 % (9.3-17.3); White Blood Count 8.1 T/CUMM (4-12)
[2017-03-07 05:02] LABS: Albumin 4.5 G/DL (3.4-5.0); Osmolality,Calculated 279.5 MOS/KG (273-304)
[2017-03-07] MEDS: VALPROIC ACID INJ 250 MG in SODIUM CHLORIDE 0.9% 100 ML IV SCH ×3 (05:32→21:53)
[2017-03-07] MEDS: ALBUTEROL/IPRATROPIUM 3 ML NEB RESP TX SCH ×4 (06:57→19:20)
[2017-03-07] MEDS: SIMETHICONE CHEW 80 MG TABLET PO SCH ×4 (09:54→20:34)
[2017-03-07] MEDS: PANTOPRAZOLE 40 MG VIAL IV SCH ×2 (09:54→20:34)
[2017-03-07] MEDS: CHLORHEXIDINE 0.12% ORAL RINSE 60 ML BOTTLE SWISH/SPIT SCH ×2 (09:55→22:01)
[2017-03-07] MEDS: DESITIN 4OZ/NYSTATIN 15 GRAM MIXTURE PASTE TOP SCH ×2 (09:56→20:34)
[2017-03-07] MEDS: NYSTATIN POWDER 15 GM BOTTLE TOP SCH ×2 (09:56→20:34)
[2017-03-07] MEDS ORDERED: LORazepam 2 MG/1 ML VIAL ONE (14:51)
[2017-03-07] MEDS ORDERED: fentaNYL 100 MCG/2 ML VIAL ONE (14:52)
[2017-03-07] MEDS ORDERED: fentaNYL 100 MCG/2 ML VIAL IV PRN (15:00)
[2017-03-07] MEDS: FAT EMULSION 20% 250 ML IV SCH (16:32)
[2017-03-07] MEDS: ELECTROLYTE CONCENTRATE 20 ML, TRACE ELEMENTS (5) 1 ML, MULTIVITAMIN INJ 10 ML in AMINO... IV SCH (18:36)
[2017-03-08] MEDS: CEFEPIME 1,000 MG in SYRINGE 1 EACH IV SCH ×3 (03:01→18:26)
[2017-03-08] MEDS: VANCOMYCIN INJ 500 MG in SODIUM CHLORIDE 0.9% 100 ML IV SCH ×4 (03:22→22:32)
[2017-03-08 03:50] LABS: Basophils % 0.2 % (0.0-0.8); Eosinophils # 0.4 10*3/uL (0.0-0.87); Eosinophils % 4.4 % (0.00-10.9); Hematocrit 28.4 VOL% (42.0-52.0); Hemoglobin 9.1 GM/DL (14.0-18.0); Immature Granulocytes % 0.7 %; Immature Granulocytes Absolute 0.07 #; Lymphocytes # 0.9 10*3/uL (1.4-4.0); Lymphocytes % 9.7 % (21.2-54.2); Mean Corpuscular Hemoglobin 30 PG (27-34); Mean Corpuscular Volume 92.8 FL (87-102); Mean Platelet Volume 10.7 FL (9.6-12.0); Monocytes # 0.9 10*3/uL (0.11-0.8); Monocytes % 9.3 % (1.7-12.7); Neutrophils # 7.1 10*3/uL (1.4-7.4); Neutrophils % 75.7 % (38.7-73.9); Platelet Count 442 T/CUMM (130-400); Red Blood Count 3.06 MC/CUMM (3.8-5.5); Red Cell Distribution Width 15.9 % (9.3-17.3); White Blood Count 9.3 T/CUMM (4-12)
[2017-03-08 04:01] LABS: Albumin 4.8 G/DL (3.4-5.0); Calcium 10.1 MG/DL (8.5-10.1); Osmolality,Calculated 280.7 MOS/KG (273-304); Potassium 3.9 MMOL/L (3.5-5.1)
[2017-03-08 04:26] LABS: Magnesium 1.8 MG/DL (1.8-2.4)
[2017-03-08] MEDS: VALPROIC ACID INJ 250 MG in SODIUM CHLORIDE 0.9% 100 ML IV SCH ×3 (04:49→20:20)
[2017-03-08] MEDS: ALBUMIN 25% 25 GM in PREMIX 1 EACH IV SCH (04:49)
[2017-03-08 07:19] LABS: Apearance,Urine CLEAR (Clear); Bacteria,Urine Occasional /HPF (Few); Bilirubin,Urine Negative (Negative); Blood, Urine Moderate mg/dL (Negative); Glucose,Urine (UA) Negative (Negative); Ketones,Urine Negative (Negative); Mucus,Urine Occasional /LPF (Occasional); Nitrite,Urine Negative (Negative); Protein,Urine 100 MG/DL; RBC,Urine 111 /HPF (0-4); Squamous Epithelial Cell,Urine Occasional /HPF (0-10); Urine Color Yellow (Yellow); Urine Specific Gravity 1.021 (1.001-1.035); Urine Urobilinogen < 2.0 EU/DL (0.2-1.0); WBC,Urine 4 /HPF (0-6)
[2017-03-08] MEDS: ALBUTEROL/IPRATROPIUM 3 ML NEB RESP TX SCH ×4 (07:54→19:46)
[2017-03-08] MEDS: PANTOPRAZOLE 40 MG VIAL IV SCH ×2 (10:15→20:17)
[2017-03-08] MEDS: SIMETHICONE CHEW 80 MG TABLET PO SCH ×4 (10:15→20:18)
[2017-03-08] MEDS: NYSTATIN POWDER 15 GM BOTTLE TOP SCH ×2 (10:16→20:20)
[2017-03-08] MEDS: DESITIN 4OZ/NYSTATIN 15 GRAM MIXTURE PASTE TOP SCH ×2 (10:16→20:21)
[2017-03-08] MEDS: CHLORHEXIDINE 0.12% ORAL RINSE 60 ML BOTTLE SWISH/SPIT SCH ×2 (10:17→20:21)
[2017-03-08] MEDS: FAT EMULSION 20% 250 ML IV SCH (14:24)
[2017-03-08] MEDS ORDERED: VANCOMYCIN INJ 500 MG in SODIUM CHLORIDE 0.9% 100 ML IV SCH (14:30)
[2017-03-08] MEDS: LORazepam 2 MG/1 ML VIAL IV PRN ×2 (16:08→23:27)
[2017-03-08] MEDS: ELECTROLYTE CONCENTRATE 20 ML, TRACE ELEMENTS (5) 1 ML, MULTIVITAMIN INJ 10 ML in AMINO... IV SCH (17:32)
[2017-03-09] MEDS: CEFEPIME 1,000 MG in SYRINGE 1 EACH IV SCH (02:51)
[2017-03-09 03:36] LABS: Basophils % 0.2 % (0.0-0.8); Eosinophils # 0.4 10*3/uL (0.0-0.87); Eosinophils % 4.9 % (0.00-10.9); Hematocrit 30.8 VOL% (42.0-52.0); Hemoglobin 9.9 GM/DL (14.0-18.0); Immature Granulocytes % 0.7 %; Immature Granulocytes Absolute 0.06 #; Lymphocytes # 0.8 10*3/uL (1.4-4.0); Lymphocytes % 9.9 % (21.2-54.2); Mean Corpuscular HGB Conc 32.1 GM/DL (32-36); Mean Corpuscular Hemoglobin 30 PG (27-34); Mean Corpuscular Volume 92.8 FL (87-102); Mean Platelet Volume 10.4 FL (9.6-12.0); Monocytes % 11.6 % (1.7-12.7); Neutrophils # 6.1 10*3/uL (1.4-7.4); Neutrophils % 72.7 % (38.7-73.9); Platelet Count 388 T/CUMM (130-400); Red Blood Count 3.32 MC/CUMM (3.8-5.5); Red Cell Distribution Width 15.9 % (9.3-17.3); White Blood Count 8.4 T/CUMM (4-12)
[2017-03-09 03:58] LABS: Albumin 4.6 G/DL (3.4-5.0); Calcium 10.3 MG/DL (8.5-10.1); Osmolality,Calculated 278.7 MOS/KG (273-304); Potassium 4.1 MMOL/L (3.5-5.1)
[2017-03-09] MEDS: VALPROIC ACID INJ 250 MG in SODIUM CHLORIDE 0.9% 100 ML IV SCH ×3 (06:06→20:54)
[2017-03-09] MEDS: SODIUM CHLORIDE 0.9% 1,000 ML IV SCH ×2 (06:08)
[2017-03-09] MEDS: VANCOMYCIN INJ 500 MG in SODIUM CHLORIDE 0.9% 100 ML IV SCH ×3 (07:30→22:04)
[2017-03-09] MEDS: ALBUTEROL/IPRATROPIUM 3 ML NEB RESP TX SCH ×4 (08:08→18:09)
[2017-03-09] MEDS: PANTOPRAZOLE 40 MG VIAL IV SCH ×2 (10:52→20:53)
[2017-03-09] MEDS: SIMETHICONE CHEW 80 MG TABLET PO SCH ×4 (10:57→22:01)
[2017-03-09] MEDS: CHLORHEXIDINE 0.12% ORAL RINSE 60 ML BOTTLE SWISH/SPIT SCH ×2 (10:59→20:53)
[2017-03-09] MEDS: DESITIN 4OZ/NYSTATIN 15 GRAM MIXTURE PASTE TOP SCH ×2 (10:59→20:54)
[2017-03-09] MEDS: NYSTATIN POWDER 15 GM BOTTLE TOP SCH ×2 (11:02→20:53)
[2017-03-09] MEDS: FAT EMULSION 20% 250 ML IV SCH (14:00)
[2017-03-09] MEDS: [UNRECOGNIZED DRUG - OTHER] IV SCH (17:36)
[2017-03-09] MEDS: TRACE ELEMENTS IV SCH (17:36)
[2017-03-09] MEDS: ELECTROLYTE IV SCH (17:36)
[2017-03-09] MEDS: MULTIVITAMIN IV SCH (17:36)
[2017-03-10 03:03] LABS: Basophils % 0.2 % (0.0-0.8); Eosinophils # 0.3 10*3/uL (0.0-0.87); Eosinophils % 3.8 % (0.00-10.9); Hematocrit 30.4 VOL% (42.0-52.0); Hemoglobin 9.9 GM/DL (14.0-18.0); Immature Granulocytes % 0.7 %; Immature Granulocytes Absolute 0.06 #; Lymphocytes # 0.9 10*3/uL (1.4-4.0); Lymphocytes % 11.1 % (21.2-54.2); Mean Corpuscular HGB Conc 32.6 GM/DL (32-36); Mean Corpuscular Hemoglobin 30 PG (27-34); Mean Corpuscular Volume 92.1 FL (87-102); Mean Platelet Volume 10.8 FL (9.6-12.0); Monocytes # 0.9 10*3/uL (0.11-0.8); Monocytes % 10.8 % (1.7-12.7); Neutrophils # 6.2 10*3/uL (1.4-7.4); Neutrophils % 73.4 % (38.7-73.9); Platelet Count 388 T/CUMM (130-400); Red Cell Distribution Width 15.9 % (9.3-17.3); White Blood Count 8.5 T/CUMM (4-12)
[2017-03-10 03:31] LABS: Calcium 10.2 MG/DL (8.5-10.1); Osmolality,Calculated 286.3 MOS/KG (273-304)
[2017-03-10 03:36] LABS: Albumin 4.4 G/DL (3.4-5.0); Osmolality,Calculated 281.5 MOS/KG (273-304)
[2017-03-10] MEDS: VANCOMYCIN INJ 500 MG in SODIUM CHLORIDE 0.9% 100 ML IV SCH (04:44)
[2017-03-10] MEDS: VALPROIC ACID INJ 250 MG in SODIUM CHLORIDE 0.9% 100 ML IV SCH ×2 (06:04→14:19)
[2017-03-10] MEDS: ALBUTEROL/IPRATROPIUM 3 ML NEB RESP TX SCH ×4 (07:53→19:25)
[2017-03-10] MEDS: SIMETHICONE CHEW 80 MG TABLET PO SCH ×4 (09:22→20:31)
[2017-03-10] MEDS: CHLORHEXIDINE 0.12% ORAL RINSE 60 ML BOTTLE SWISH/SPIT SCH ×2 (09:23→20:32)
[2017-03-10] MEDS: PANTOPRAZOLE 40 MG VIAL IV SCH ×2 (09:35→20:28)
[2017-03-10] MEDS ORDERED: DAPTOmycin 500 MG in SODIUM CHLORIDE 0.9% 50 ML IV SCH (10:00)
[2017-03-10] MEDS: DESITIN 4OZ/NYSTATIN 15 GRAM MIXTURE PASTE TOP SCH ×2 (14:18→20:31)
[2017-03-10] MEDS: NYSTATIN POWDER 15 GM BOTTLE TOP SCH ×2 (14:19→20:31)
[2017-03-10] MEDS: [UNRECOGNIZED DRUG - OTHER] IV SCH (14:28)
[2017-03-10] MEDS: TRACE ELEMENTS IV SCH (14:28)
[2017-03-10] MEDS: ELECTROLYTE IV SCH (14:28)
[2017-03-10] MEDS: MULTIVITAMIN IV SCH (14:28)
[2017-03-10] MEDS: FAT EMULSION 20% 250 ML IV SCH (14:34)
[2017-03-10] MEDS: LORazepam 2 MG/1 ML VIAL IV PRN (20:26)
[2017-03-10] MEDS: SODIUM CHLORIDE 0.9% IV SCH (21:14)
[2017-03-10] MEDS: VALPROIC ACID IV SCH (21:14)
[2017-03-11] MEDS: SODIUM CHLORIDE 0.9% 1,000 ML IV SCH ×2 (01:01)
[2017-03-11 04:10] LABS: Basophils % 0.1 % (0.0-0.8); Eosinophils # 0.2 10*3/uL (0.0-0.87); Hematocrit 30.1 VOL% (42.0-52.0); Hemoglobin 9.8 GM/DL (14.0-18.0); Immature Granulocytes % 0.8 %; Immature Granulocytes Absolute 0.06 #; Lymphocytes # 0.8 10*3/uL (1.4-4.0); Lymphocytes % 10.7 % (21.2-54.2); Mean Corpuscular HGB Conc 32.6 GM/DL (32-36); Mean Corpuscular Hemoglobin 30 PG (27-34); Mean Corpuscular Volume 90.7 FL (87-102); Mean Platelet Volume 10.8 FL (9.6-12.0); Monocytes # 0.9 10*3/uL (0.11-0.8); Monocytes % 11.1 % (1.7-12.7); Neutrophils # 5.7 10*3/uL (1.4-7.4); Neutrophils % 74.3 % (38.7-73.9); Platelet Count 369 T/CUMM (130-400); Red Blood Count 3.32 MC/CUMM (3.8-5.5); Red Cell Distribution Width 15.9 % (9.3-17.3); White Blood Count 7.7 T/CUMM (4-12)
[2017-03-11 04:18] LABS: INR 1.2; PT Patient Result 12.6 SECS; Partial Thromboplastin Time 31.7 SECS (0-40)
[2017-03-11 04:30] LABS: Albumin 4.4 G/DL (3.4-5.0); Bilirubin,Direct 0.26 MG/DL (0.0-0.20); Bilirubin,Indirect 0.1 MG/DL (0.0-1.0); Bilirubin,Total 0.4 MG/DL (0.2-1.0); Calcium 10.1 MG/DL (8.5-10.1); Osmolality,Calculated 287.3 MOS/KG (273-304); Potassium 3.9 MMOL/L (3.5-5.1); Total Protein 7.4 G/DL (6.4-8.3)
[2017-03-11] MEDS: ALBUTEROL/IPRATROPIUM 3 ML NEB RESP TX SCH ×4 (07:55→19:30)
[2017-03-11] MEDS: PANTOPRAZOLE 40 MG VIAL IV SCH ×2 (08:42→20:50)
[2017-03-11] MEDS: SIMETHICONE CHEW 80 MG TABLET PO SCH ×4 (08:42→20:51)
[2017-03-11] MEDS: VALPROIC ACID IV SCH ×2 (10:18→20:51)
[2017-03-11] MEDS: SODIUM CHLORIDE 0.9% IV SCH ×3 (10:18→20:51)
[2017-03-11] MEDS: CHLORHEXIDINE 0.12% ORAL RINSE 60 ML BOTTLE SWISH/SPIT SCH ×2 (10:20→20:50)
[2017-03-11] MEDS: DAPTOMYCIN IV SCH (10:20)
[2017-03-11] MEDS: DESITIN 4OZ/NYSTATIN 15 GRAM MIXTURE PASTE TOP SCH ×2 (10:20→20:50)
[2017-03-11] MEDS: NYSTATIN POWDER 15 GM BOTTLE TOP SCH ×2 (10:20→20:50)
[2017-03-11] MEDS: TRACE ELEMENTS IV SCH (11:00)
[2017-03-11] MEDS: MULTIVITAMIN IV SCH (11:00)
[2017-03-11] MEDS: ELECTROLYTE IV SCH (11:00)
[2017-03-11] MEDS: [UNRECOGNIZED DRUG - OTHER] IV SCH (11:00)
[2017-03-11] MEDS: FAT EMULSION 20% 250 ML IV SCH (15:23)
[2017-03-12] MEDS: LORazepam 2 MG/1 ML VIAL IV PRN ×2 (00:10→22:10)
[2017-03-12 06:43] LABS: Calcium 10.2 MG/DL (8.5-10.1); Magnesium 1.8 MG/DL (1.8-2.4); Osmolality,Calculated 284.4 MOS/KG (273-304); Potassium 4.1 MMOL/L (3.5-5.1)
[2017-03-12] MEDS: ALBUTEROL/IPRATROPIUM 3 ML NEB RESP TX SCH ×4 (07:32→19:55)
[2017-03-12] MEDS: TRACE ELEMENTS IV SCH (09:11)
[2017-03-12] MEDS: [UNRECOGNIZED DRUG - OTHER] IV SCH (09:11)
[2017-03-12] MEDS: MULTIVITAMIN IV SCH (09:11)
[2017-03-12] MEDS: ELECTROLYTE IV SCH (09:11)
[2017-03-12] MEDS: SIMETHICONE CHEW 80 MG TABLET PO SCH ×4 (09:17→21:33)
[2017-03-12] MEDS: PANTOPRAZOLE 40 MG VIAL IV SCH ×2 (09:17→21:31)
[2017-03-12] MEDS: NYSTATIN POWDER 15 GM BOTTLE TOP SCH ×2 (09:20→21:33)
[2017-03-12] MEDS: CHLORHEXIDINE 0.12% ORAL RINSE 60 ML BOTTLE SWISH/SPIT SCH ×2 (09:21→21:33)
[2017-03-12] MEDS: DESITIN 4OZ/NYSTATIN 15 GRAM MIXTURE PASTE TOP SCH ×2 (09:21→21:34)
[2017-03-12] MEDS: VALPROIC ACID IV SCH ×2 (11:08→21:32)
[2017-03-12] MEDS: SODIUM CHLORIDE 0.9% IV SCH ×3 (11:08→21:32)
[2017-03-12] MEDS: DAPTOMYCIN IV SCH (12:34)
[2017-03-12] MEDS: FAT EMULSION 20% 250 ML IV SCH (14:31)
[2017-03-12] MEDS: SODIUM CHLORIDE 0.9% 1,000 ML IV SCH (17:49)
[2017-03-13] MEDS: MULTIVITAMIN IV SCH ×2 (04:05→18:08)
[2017-03-13] MEDS: TRACE ELEMENTS IV SCH ×2 (04:05→18:08)
[2017-03-13] MEDS: ELECTROLYTE IV SCH ×2 (04:05→18:08)
[2017-03-13] MEDS: [UNRECOGNIZED DRUG - OTHER] IV SCH (04:05)
[2017-03-13] MEDS: ALBUTEROL/IPRATROPIUM 3 ML NEB RESP TX SCH ×4 (07:06→19:28)
[2017-03-13] MEDS: VALPROIC ACID IV SCH ×2 (09:52→22:09)
[2017-03-13] MEDS: SODIUM CHLORIDE 0.9% IV SCH ×3 (09:52→22:09)
[2017-03-13] MEDS: PANTOPRAZOLE 40 MG VIAL IV SCH ×2 (09:52→22:09)
[2017-03-13] MEDS: SIMETHICONE CHEW 80 MG TABLET PO SCH ×4 (09:52→22:11)
[2017-03-13] MEDS: CHLORHEXIDINE 0.12% ORAL RINSE 60 ML BOTTLE SWISH/SPIT SCH ×2 (09:53→22:11)
[2017-03-13] MEDS: NYSTATIN POWDER 15 GM BOTTLE TOP SCH ×2 (09:53→22:11)
[2017-03-13] MEDS: DESITIN 4OZ/NYSTATIN 15 GRAM MIXTURE PASTE TOP SCH ×2 (09:53→22:12)
[2017-03-13] MEDS: SODIUM CHLORIDE 0.9% 1,000 ML IV SCH (09:54)
[2017-03-13] MEDS: DAPTOMYCIN IV SCH (10:32)
[2017-03-13] MEDS: FAT EMULSION 20% 250 ML IV SCH (14:52)
[2017-03-13] MEDS: [UNRECOGNIZED DRUG - OTHER] IV SCH (18:08)
[2017-03-14] MEDS: LORazepam 2 MG/1 ML VIAL IV PRN ×2 (00:30→22:27)
[2017-03-14 04:38] LABS: Basophils % 0.2 % (0.0-0.8); Eosinophils # 0.3 10*3/uL (0.0-0.87); Eosinophils % 3.7 % (0.00-10.9); Hematocrit 31.3 VOL% (42.0-52.0); Hemoglobin 9.9 GM/DL (14.0-18.0); Immature Granulocytes % 0.4 %; Immature Granulocytes Absolute 0.03 #; Lymphocytes # 0.7 10*3/uL (1.4-4.0); Lymphocytes % 8.6 % (21.2-54.2); Mean Corpuscular HGB Conc 31.6 GM/DL (32-36); Mean Corpuscular Hemoglobin 30 PG (27-34); Mean Corpuscular Volume 93.2 FL (87-102); Mean Platelet Volume 10.9 FL (9.6-12.0); Monocytes % 12.3 % (1.7-12.7); Neutrophils # 6.3 10*3/uL (1.4-7.4); Neutrophils % 74.8 % (38.7-73.9); Platelet Count 360 T/CUMM (130-400); Red Blood Count 3.36 MC/CUMM (3.8-5.5); Red Cell Distribution Width 15.9 % (9.3-17.3); White Blood Count 8.4 T/CUMM (4-12)
[2017-03-14 05:01] LABS: Calcium 9.9 MG/DL (8.5-10.1); Osmolality,Calculated 280.5 MOS/KG (273-304); Potassium 4.4 MMOL/L (3.5-5.1)
[2017-03-14] MEDS: ALBUTEROL/IPRATROPIUM 3 ML NEB RESP TX SCH ×4 (07:42→20:30)
[2017-03-14] MEDS: SODIUM CHLORIDE 0.9% 1,000 ML IV SCH (08:48)
[2017-03-14] MEDS: SODIUM CHLORIDE 0.9% IV SCH ×3 (08:50→22:23)
[2017-03-14] MEDS: VALPROIC ACID IV SCH ×2 (08:50→22:23)
[2017-03-14] MEDS: SIMETHICONE CHEW 80 MG TABLET PO SCH ×3 (08:55→22:26)
[2017-03-14] MEDS: CHLORHEXIDINE 0.12% ORAL RINSE 60 ML BOTTLE SWISH/SPIT SCH ×2 (08:56→22:26)
[2017-03-14] MEDS: PANTOPRAZOLE 40 MG VIAL IV SCH ×2 (08:57→22:25)
[2017-03-14] MEDS: NYSTATIN POWDER 15 GM BOTTLE TOP SCH ×2 (09:20→22:27)
[2017-03-14] MEDS: DESITIN 4OZ/NYSTATIN 15 GRAM MIXTURE PASTE TOP SCH (09:20)
[2017-03-14] MEDS: DAPTOMYCIN IV SCH (11:32)
[2017-03-14] MEDS: FAT EMULSION 20% 250 ML IV SCH (16:01)
[2017-03-14] MEDS: ELECTROLYTE IV SCH (17:55)
[2017-03-14] MEDS: TRACE ELEMENTS IV SCH (17:55)
[2017-03-14] MEDS: [UNRECOGNIZED DRUG - OTHER] IV SCH (17:55)
[2017-03-14] MEDS: MULTIVITAMIN IV SCH (17:55)
[2017-03-15] MEDS: DESITIN 4OZ/NYSTATIN 15 GRAM MIXTURE PASTE TOP SCH ×3 (02:44→21:42)
[2017-03-15 06:26] LABS: Magnesium 1.8 MG/DL (1.8-2.4); Prealbumin 22.1 MG/DL (20-40)
[2017-03-15] MEDS: ALBUTEROL/IPRATROPIUM 3 ML NEB RESP TX SCH ×4 (08:01→20:09)
[2017-03-15] MEDS: VALPROIC ACID IV SCH (10:21)
[2017-03-15] MEDS: SODIUM CHLORIDE 0.9% IV SCH ×2 (10:21→11:34)
[2017-03-15] MEDS: PANTOPRAZOLE 40 MG VIAL IV SCH ×2 (10:23→21:41)
[2017-03-15] MEDS: SIMETHICONE CHEW 80 MG TABLET PO SCH ×3 (10:31→21:40)
[2017-03-15] MEDS: DAPTOMYCIN IV SCH (11:34)
[2017-03-15] MEDS: SODIUM CHLORIDE 0.9% 1,000 ML IV SCH (11:36)
[2017-03-15] MEDS: NYSTATIN POWDER 15 GM BOTTLE TOP SCH ×2 (18:27→21:41)
[2017-03-15] MEDS: CHLORHEXIDINE 0.12% ORAL RINSE 60 ML BOTTLE SWISH/SPIT SCH ×2 (18:28→21:40)
[2017-03-15] MEDS: VALPROIC ACID 250 MG/5 ML UDCUP PO SCH (21:40)
[2017-03-16] MEDS: ALBUTEROL/IPRATROPIUM 3 ML NEB RESP TX SCH ×4 (08:09→19:38)
[2017-03-16] MEDS: PANTOPRAZOLE 40 MG VIAL IV SCH ×2 (08:55→20:10)
[2017-03-16] MEDS: VALPROIC ACID 250 MG/5 ML UDCUP PO SCH ×2 (08:55→20:10)
[2017-03-16] MEDS: SIMETHICONE CHEW 80 MG TABLET PO SCH ×4 (08:55→20:10)
[2017-03-16] MEDS: CHLORHEXIDINE 0.12% ORAL RINSE 60 ML BOTTLE SWISH/SPIT SCH ×2 (08:56→20:11)
[2017-03-16] MEDS: NYSTATIN POWDER 15 GM BOTTLE TOP SCH ×2 (08:56→20:11)
[2017-03-16] MEDS: DESITIN 4OZ/NYSTATIN 15 GRAM MIXTURE PASTE TOP SCH ×2 (08:57→21:39)
[2017-03-17] MEDS: ALBUTEROL/IPRATROPIUM 3 ML NEB RESP TX PRN (04:27)
[2017-03-17] MEDS: ALBUTEROL/IPRATROPIUM 3 ML NEB RESP TX SCH ×4 (08:15→19:59)
[2017-03-17] MEDS: CHLORHEXIDINE 0.12% ORAL RINSE 60 ML BOTTLE SWISH/SPIT SCH ×2 (09:56→20:58)
[2017-03-17] MEDS: SIMETHICONE CHEW 80 MG TABLET PO SCH ×4 (09:56→20:44)
[2017-03-17] MEDS: NYSTATIN POWDER 15 GM BOTTLE TOP SCH ×2 (09:56→20:49)
[2017-03-17] MEDS: VALPROIC ACID 250 MG/5 ML UDCUP PO SCH ×2 (09:56→20:44)
[2017-03-17] MEDS: PANTOPRAZOLE 40 MG VIAL IV SCH ×2 (09:56→20:49)
[2017-03-17] MEDS: DESITIN 4OZ/NYSTATIN 15 GRAM MIXTURE PASTE TOP SCH ×2 (09:57→20:59)
[2017-03-17 16:11] LABS: VBG Base Excess 9.1 MEQ/L (0-4); VBG HCO3 32.6 MEQ/L (24-28); VBG Oxygen Saturation 86.8 %; VBG PCO2 61.5 MMHG (41-51); VBG PH 7.38
[2017-03-17] MEDS: ACETAMINOPHEN 325 MG/10.15 ML UDCUP PO PRN (17:44)
[2017-03-18 05:11] LABS: Basophils % 0.2 % (0.0-0.8); Eosinophils # 0.3 10*3/uL (0.0-0.87); Eosinophils % 3.5 % (0.00-10.9); Hemoglobin 10.7 GM/DL (14.0-18.0); Immature Granulocytes % 0.4 %; Immature Granulocytes Absolute 0.04 #; Lymphocytes # 0.9 10*3/uL (1.4-4.0); Lymphocytes % 9.7 % (21.2-54.2); Mean Corpuscular HGB Conc 31.5 GM/DL (32-36); Mean Corpuscular Hemoglobin 29 PG (27-34); Mean Corpuscular Volume 93.2 FL (87-102); Mean Platelet Volume 10.5 FL (9.6-12.0); Monocytes # 1.1 10*3/uL (0.11-0.8); Monocytes % 11.5 % (1.7-12.7); Neutrophils # 6.8 10*3/uL (1.4-7.4); Neutrophils % 74.7 % (38.7-73.9); Platelet Count 387 T/CUMM (130-400); Red Blood Count 3.65 MC/CUMM (3.8-5.5); Red Cell Distribution Width 15.7 % (9.3-17.3); White Blood Count 9.2 T/CUMM (4-12)
[2017-03-18 05:26] LABS: Albumin 4.4 G/DL (3.4-5.0); Calcium 10.3 MG/DL (8.5-10.1); Potassium 4.6 MMOL/L (3.5-5.1)
[2017-03-18] MEDS: ALBUTEROL/IPRATROPIUM 3 ML NEB RESP TX SCH ×4 (08:01→19:23)
[2017-03-18] MEDS: VALPROIC ACID 250 MG/5 ML UDCUP PO SCH ×2 (09:31→20:48)
[2017-03-18] MEDS: DESITIN 4OZ/NYSTATIN 15 GRAM MIXTURE PASTE TOP SCH ×2 (09:31→20:54)
[2017-03-18] MEDS: SIMETHICONE CHEW 80 MG TABLET PO SCH ×4 (09:31→20:48)
[2017-03-18] MEDS: PANTOPRAZOLE 40 MG VIAL IV SCH ×2 (09:31→20:51)
[2017-03-18] MEDS: NYSTATIN POWDER 15 GM BOTTLE TOP SCH ×2 (09:32→20:54)
[2017-03-18] MEDS: CHLORHEXIDINE 0.12% ORAL RINSE 60 ML BOTTLE SWISH/SPIT SCH ×2 (09:32→20:56)
[2017-03-19] MEDS: ALBUTEROL/IPRATROPIUM 3 ML NEB RESP TX SCH ×4 (07:21→19:56)
[2017-03-19] MEDS: VALPROIC ACID 250 MG/5 ML UDCUP PO SCH ×2 (10:25→22:05)
[2017-03-19] MEDS: PANTOPRAZOLE 40 MG VIAL IV SCH ×2 (10:25→21:56)
[2017-03-19] MEDS: SIMETHICONE CHEW 80 MG TABLET PO SCH ×4 (10:25→22:27)
[2017-03-19] MEDS: DESITIN 4OZ/NYSTATIN 15 GRAM MIXTURE PASTE TOP SCH ×2 (10:26→22:27)
[2017-03-19] MEDS: CHLORHEXIDINE 0.12% ORAL RINSE 60 ML BOTTLE SWISH/SPIT SCH ×2 (10:26→22:27)
[2017-03-19] MEDS: NYSTATIN POWDER 15 GM BOTTLE TOP SCH ×2 (10:26→22:27)
[2017-03-19] MEDS: ACETAMINOPHEN 325 MG/10.15 ML UDCUP PO PRN ×2 (14:32→22:06)
[2017-03-19] MEDS ORDERED: SODIUM CHLORIDE 0.9% 500 ML IV ONE ×2 (14:41→19:28)
[2017-03-19] MEDS ORDERED: PIPERACILLIN/TAZOBACTAM 3,375 MG in SODIUM CHLORIDE 0.9% 100 ML IV SCH (15:00)
[2017-03-19 15:27] LABS: Basophils % 0.2 % (0.0-0.8); Eosinophils # 0.3 10*3/uL (0.0-0.87); Eosinophils % 2.2 % (0.00-10.9); Hematocrit 34.8 VOL% (42.0-52.0); Hemoglobin 11.1 GM/DL (14.0-18.0); Immature Granulocytes % 0.4 %; Immature Granulocytes Absolute 0.05 #; Lymphocytes # 0.4 10*3/uL (1.4-4.0); Lymphocytes % 3.3 % (21.2-54.2); Mean Corpuscular HGB Conc 31.9 GM/DL (32-36); Mean Corpuscular Hemoglobin 30 PG (27-34); Mean Corpuscular Volume 94.6 FL (87-102); Mean Platelet Volume 10.3 FL (9.6-12.0); Monocytes # 1.3 10*3/uL (0.11-0.8); Monocytes % 10.1 % (1.7-12.7); Neutrophils # 10.9 10*3/uL (1.4-7.4); Neutrophils % 83.8 % (38.7-73.9); Platelet Count 353 T/CUMM (130-400); Red Blood Count 3.68 MC/CUMM (3.8-5.5); Red Cell Distribution Width 15.8 % (9.3-17.3)
[2017-03-19 15:29] LABS: Apearance,Urine CLOUDY (Clear); Bacteria,Urine Many /HPF (Few); Bilirubin,Urine Negative (Negative); Blood, Urine Large mg/dL (Negative); Glucose,Urine (UA) 50 mg/dL (Negative); Ketones,Urine Negative (Negative); Mucus,Urine Many /LPF (Occasional); Nitrite,Urine Positive (Negative); Protein,Urine 100 MG/DL; RBC,Urine 396 /HPF (0-4); Squamous Epithelial Cell,Urine Occasional /HPF (0-10); Urine Color Amber (Yellow); Urine Specific Gravity 1.026 (1.001-1.035); Urine Urobilinogen < 2.0 EU/DL (0.2-1.0); WBC,Urine 98 /HPF (0-6)
[2017-03-19 16:01] LABS: Albumin 4.3 G/DL (3.4-5.0); Osmolality,Calculated 276.1 MOS/KG (273-304); Potassium 4.8 MMOL/L (3.5-5.1)
[2017-03-19 16:29] LABS: Band Neutrophils 3 % (0-10); Eosinophils 1 % (0-10); Lymphocytes 5 % (20-55); Platelet Estimate Normal; Segmented Neutrophils 83 % (50-85); Total Cells Counted 100
[2017-03-19 17:28] LABS: VBG Base Excess 7.7 MEQ/L (0-4); VBG HCO3 33.2 MEQ/L (24-28); VBG Oxygen Saturation 87.3 %; VBG PCO2 50.7 MMHG (41-51); VBG PH 7.434
[2017-03-19] MEDS ORDERED: LEVOFLOXACIN INJ 250 MG in PREMIX 1 EACH IV SCH (18:00)
[2017-03-20 06:44] LABS: Basophils % 0.3 % (0.0-0.8); Eosinophils # 0.2 10*3/uL (0.0-0.87); Hemoglobin 10.6 GM/DL (14.0-18.0); Immature Granulocytes % 0.4 %; Immature Granulocytes Absolute 0.03 #; Lymphocytes # 0.4 10*3/uL (1.4-4.0); Lymphocytes % 5.4 % (21.2-54.2); Mean Corpuscular HGB Conc 32.1 GM/DL (32-36); Mean Corpuscular Hemoglobin 30 PG (27-34); Mean Corpuscular Volume 91.9 FL (87-102); Monocytes # 0.7 10*3/uL (0.11-0.8); Monocytes % 10.2 % (1.7-12.7); Neutrophils # 5.6 10*3/uL (1.4-7.4); Neutrophils % 80.7 % (38.7-73.9); Platelet Count 271 T/CUMM (130-400); Red Blood Count 3.59 MC/CUMM (3.8-5.5)
[2017-03-20 07:20] LABS: Albumin 3.9 G/DL (3.4-5.0); Calcium 9.5 MG/DL (8.5-10.1); Osmolality,Calculated 273.1 MOS/KG (273-304); Potassium 4.5 MMOL/L (3.5-5.1)
[2017-03-20 07:21] LABS: Magnesium 1.7 MG/DL (1.8-2.4); Prealbumin 20.7 MG/DL (20-40)
[2017-03-20] MEDS: ACETAMINOPHEN 325 MG/10.15 ML UDCUP PO PRN ×3 (07:40→19:57)
[2017-03-20] MEDS ORDERED: ALTEPLASE 2 MG VIAL IV ONE (07:59)
[2017-03-20] MEDS: ALBUTEROL/IPRATROPIUM 3 ML NEB RESP TX SCH ×4 (08:05→20:00)
[2017-03-20] MEDS: VALPROIC ACID 250 MG/5 ML UDCUP PO SCH ×2 (08:30→21:37)
[2017-03-20] MEDS: SIMETHICONE CHEW 80 MG TABLET PO SCH ×3 (08:31→21:38)
[2017-03-20] MEDS: PANTOPRAZOLE 40 MG VIAL IV SCH ×2 (08:35→21:41)
[2017-03-20] MEDS: NYSTATIN POWDER 15 GM BOTTLE TOP SCH ×2 (09:58→21:46)
[2017-03-20] MEDS: DESITIN 4OZ/NYSTATIN 15 GRAM MIXTURE PASTE TOP SCH ×2 (09:58→22:11)
[2017-03-20] MEDS: CHLORHEXIDINE 0.12% ORAL RINSE 60 ML BOTTLE SWISH/SPIT SCH ×2 (09:58→21:46)
[2017-03-20] MEDS: LEVOFLOXACIN INJ 750 MG in PREMIX 1 EACH IV SCH (09:59)
[2017-03-20] MEDS: ONDANSETRON 4 MG/2 ML VIAL IV PRN (11:25)
[2017-03-20] MEDS: cefTAZidime 500 MG in SYRINGE 1 EACH IV SCH ×2 (11:56→21:44)
[2017-03-20] MEDS: SODIUM CHLORIDE 0.9% 1,000 ML IV SCH (12:59)
[2017-03-21 04:31] LABS: Basophils % 0.2 % (0.0-0.8); Eosinophils # 0.1 10*3/uL (0.0-0.87); Eosinophils % 2.2 % (0.00-10.9); Hematocrit 31.2 VOL% (42.0-52.0); Hemoglobin 9.9 GM/DL (14.0-18.0); Immature Granulocytes % 0.7 %; Immature Granulocytes Absolute 0.04 #; Lymphocytes # 0.4 10*3/uL (1.4-4.0); Lymphocytes % 6.7 % (21.2-54.2); Mean Corpuscular HGB Conc 31.7 GM/DL (32-36); Mean Corpuscular Hemoglobin 30 PG (27-34); Mean Corpuscular Volume 94.5 FL (87-102); Mean Platelet Volume 10.7 FL (9.6-12.0); Monocytes # 0.6 10*3/uL (0.11-0.8); Monocytes % 10.3 % (1.7-12.7); Neutrophils # 4.4 10*3/uL (1.4-7.4); Neutrophils % 79.9 % (38.7-73.9); Platelet Count 284 T/CUMM (130-400); Red Cell Distribution Width 16.1 % (9.3-17.3); White Blood Count 5.6 T/CUMM (4-12)
[2017-03-21 04:55] LABS: Calcium 9.5 MG/DL (8.5-10.1); Osmolality,Calculated 275.8 MOS/KG (273-304); Potassium 4.1 MMOL/L (3.5-5.1)
[2017-03-21] MEDS: cefTAZidime 500 MG in SYRINGE 1 EACH IV SCH ×3 (05:05→20:24)
[2017-03-21] MEDS: SIMETHICONE CHEW 80 MG TABLET PO SCH ×3 (05:05→21:16)
[2017-03-21] MEDS: ALBUTEROL/IPRATROPIUM 3 ML NEB RESP TX SCH ×4 (07:44→19:53)
[2017-03-21] MEDS: SODIUM CHLORIDE 0.9% 1,000 ML IV SCH (09:01)
[2017-03-21] MEDS: PANTOPRAZOLE 40 MG VIAL IV SCH ×2 (09:40→21:16)
[2017-03-21] MEDS: VALPROIC ACID 250 MG/5 ML UDCUP PO SCH ×2 (09:40→21:16)
[2017-03-21] MEDS: LEVOFLOXACIN INJ 750 MG in PREMIX 1 EACH IV SCH (09:45)
[2017-03-21] MEDS: DESITIN 4OZ/NYSTATIN 15 GRAM MIXTURE PASTE TOP SCH ×2 (10:00→21:27)
[2017-03-21] MEDS: CHLORHEXIDINE 0.12% ORAL RINSE 60 ML BOTTLE SWISH/SPIT SCH ×2 (10:00→21:27)
[2017-03-21] MEDS: NYSTATIN POWDER 15 GM BOTTLE TOP SCH ×2 (13:03→21:27)
[2017-03-22] MEDS: ACETAMINOPHEN 325 MG/10.15 ML UDCUP PO PRN ×4 (00:32→21:16)
[2017-03-22] MEDS: cefTAZidime 500 MG in SYRINGE 1 EACH IV SCH ×3 (03:50→21:08)
[2017-03-22 04:38] LABS: Calcium 8.8 MG/DL (8.5-10.1); Magnesium 1.4 MG/DL (1.8-2.4); Osmolality,Calculated 277.7 MOS/KG (273-304); Potassium 3.8 MMOL/L (3.5-5.1)
[2017-03-22] MEDS: SIMETHICONE CHEW 80 MG TABLET PO SCH ×3 (05:45→21:16)
[2017-03-22] MEDS: ALBUTEROL/IPRATROPIUM 3 ML NEB RESP TX SCH ×4 (07:48→20:25)
[2017-03-22] MEDS: SODIUM CHLORIDE 0.9% 1,000 ML IV SCH (07:59)
[2017-03-22] MEDS: LEVOFLOXACIN INJ 750 MG in PREMIX 1 EACH IV SCH (08:49)
[2017-03-22] MEDS: PANTOPRAZOLE 40 MG VIAL IV SCH ×2 (08:49→21:13)
[2017-03-22] MEDS: CHLORHEXIDINE 0.12% ORAL RINSE 60 ML BOTTLE SWISH/SPIT SCH ×2 (08:50→22:43)
[2017-03-22] MEDS: VALPROIC ACID 250 MG/5 ML UDCUP PO SCH ×2 (08:50→21:16)
[2017-03-22] MEDS: NYSTATIN POWDER 15 GM BOTTLE TOP SCH ×2 (08:50→22:43)
[2017-03-22] MEDS: DESITIN 4OZ/NYSTATIN 15 GRAM MIXTURE PASTE TOP SCH ×2 (08:51→22:43)
[2017-03-22 09:32] LABS: Basophils % 0.2 % (0.0-0.8); Eosinophils # 0.1 10*3/uL (0.0-0.87); Eosinophils % 1.9 % (0.00-10.9); Hemoglobin 8.9 GM/DL (14.0-18.0); Immature Granulocytes % 0.4 %; Immature Granulocytes Absolute 0.02 #; Lymphocytes # 0.3 10*3/uL (1.4-4.0); Lymphocytes % 5.1 % (21.2-54.2); Mean Corpuscular HGB Conc 31.8 GM/DL (32-36); Mean Corpuscular Hemoglobin 30 PG (27-34); Mean Corpuscular Volume 94.6 FL (87-102); Mean Platelet Volume 10.7 FL (9.6-12.0); Monocytes # 0.4 10*3/uL (0.11-0.8); Monocytes % 8.2 % (1.7-12.7); Neutrophils # 4.3 10*3/uL (1.4-7.4); Neutrophils % 84.2 % (38.7-73.9); Platelet Count 228 T/CUMM (130-400); Red Blood Count 2.96 MC/CUMM (3.8-5.5); Red Cell Distribution Width 16.5 % (9.3-17.3); White Blood Count 5.1 T/CUMM (4-12)
[2017-03-22] MEDS: VANCOMYCIN INJ 750 MG in SODIUM CHLORIDE 0.9% 150 ML IV SCH ×2 (10:41→22:40)
[2017-03-22] MEDS ORDERED: LORazepam 2 MG/1 ML VIAL IV ONE (12:02)
[2017-03-22] MEDS ORDERED: LORazepam 2 MG/1 ML VIAL ONE (12:06)
[2017-03-22] MEDS ORDERED: MAGNESIUM SULF RIDER 4 GM in PREMIX 1 EACH IV PRN (17:46)
[2017-03-22] MEDS: MAGNESIUM SULF RIDER 2 GM in PREMIX 1 EACH IV PRN ×2 (18:15→21:11)
[2017-03-23] MEDS: cefTAZidime 500 MG in SYRINGE 1 EACH IV SCH (03:40)
[2017-03-23] MEDS: SIMETHICONE CHEW 80 MG TABLET PO SCH ×3 (06:07→21:11)
[2017-03-23] MEDS: ALBUTEROL/IPRATROPIUM 3 ML NEB RESP TX SCH ×4 (08:10→19:34)
[2017-03-23] MEDS ORDERED: MIDAZOLAM 2 MG/2 ML VIAL ONE (09:47)
[2017-03-23] MEDS: LEVOFLOXACIN INJ 750 MG in PREMIX 1 EACH IV SCH (09:52)
[2017-03-23] MEDS: CHLORHEXIDINE 0.12% ORAL RINSE 60 ML BOTTLE SWISH/SPIT SCH (09:52)
[2017-03-23] MEDS: PANTOPRAZOLE 40 MG VIAL IV SCH ×2 (09:52→20:15)
[2017-03-23] MEDS: VALPROIC ACID 250 MG/5 ML UDCUP PO SCH ×2 (09:52→21:11)
[2017-03-23] MEDS: DESITIN 4OZ/NYSTATIN 15 GRAM MIXTURE PASTE TOP SCH ×2 (09:54→21:11)
[2017-03-23] MEDS ORDERED: MIDAZOLAM 2 MG/2 ML VIAL IV ONE (10:07)
[2017-03-23] MEDS: SODIUM CHLORIDE 0.9% 1,000 ML IV SCH (10:14)
[2017-03-23] MEDS: NYSTATIN POWDER 15 GM BOTTLE TOP SCH (10:28)
[2017-03-23] MEDS ORDERED: CHLORHEXIDINE 0.12% ORAL RINSE 60 ML BOTTLE SWISH/SPIT PRN (10:33)
[2017-03-23] MEDS: VANCOMYCIN INJ 750 MG in SODIUM CHLORIDE 0.9% 150 ML IV SCH ×2 (11:53→22:08)
[2017-03-23] MEDS: cefTAZidime 1,000 MG in SYRINGE 1 EACH IV SCH ×2 (16:19→20:12)
[2017-03-23] MEDS: ACETAMINOPHEN 325 MG/10.15 ML UDCUP PO PRN (21:00)
[2017-03-24 03:48] LABS: Basophils % 0.2 % (0.0-0.8); Eosinophils # 0.2 10*3/uL (0.0-0.87); Eosinophils % 3.7 % (0.00-10.9); Hematocrit 27.7 VOL% (42.0-52.0); Hemoglobin 8.6 GM/DL (14.0-18.0); Immature Granulocytes % 0.4 %; Immature Granulocytes Absolute 0.02 #; Lymphocytes # 0.7 10*3/uL (1.4-4.0); Mean Corpuscular Hemoglobin 30 PG (27-34); Mean Corpuscular Volume 94.9 FL (87-102); Mean Platelet Volume 11.2 FL (9.6-12.0); Monocytes # 0.5 10*3/uL (0.11-0.8); Monocytes % 9.5 % (1.7-12.7); Neutrophils # 4.2 10*3/uL (1.4-7.4); Neutrophils % 74.2 % (38.7-73.9); Platelet Count 237 T/CUMM (130-400); Red Blood Count 2.92 MC/CUMM (3.8-5.5); Red Cell Distribution Width 16.8 % (9.3-17.3); White Blood Count 5.7 T/CUMM (4-12)
[2017-03-24 04:14] LABS: Calcium 8.7 MG/DL (8.5-10.1); Osmolality,Calculated 279.4 MOS/KG (273-304); Potassium 3.8 MMOL/L (3.5-5.1)
[2017-03-24] MEDS: cefTAZidime 1,000 MG in SYRINGE 1 EACH IV SCH ×3 (05:35→21:12)
[2017-03-24] MEDS: SIMETHICONE CHEW 80 MG TABLET PO SCH ×3 (05:45→21:12)
[2017-03-24] MEDS: ALBUTEROL/IPRATROPIUM 3 ML NEB RESP TX SCH ×4 (07:55→20:23)
[2017-03-24] MEDS: PANTOPRAZOLE 40 MG VIAL IV SCH ×2 (08:33→21:13)
[2017-03-24] MEDS: LEVOFLOXACIN INJ 750 MG in PREMIX 1 EACH IV SCH (08:36)
[2017-03-24] MEDS: VALPROIC ACID 250 MG/5 ML UDCUP PO SCH ×2 (08:47→21:13)
[2017-03-24] MEDS: DESITIN 4OZ/NYSTATIN 15 GRAM MIXTURE PASTE TOP SCH ×2 (08:47→21:13)
[2017-03-24] MEDS: SODIUM CHLORIDE 0.9% 1,000 ML IV SCH ×2 (08:52→08:54)
[2017-03-24] MEDS: GENTAMICIN INJ 200 MG in SODIUM CHLORIDE 0.9% 100 ML IV SCH (11:25)
[2017-03-24 18:45] LABS: Apearance,Urine CLEAR (Clear); Bilirubin,Urine Negative (Negative); Blood, Urine Small mg/dL (Negative); Glucose,Urine (UA) Negative (Negative); Ketones,Urine Negative (Negative); Mucus,Urine Occasional /LPF (Occasional); Nitrite,Urine Negative (Negative); Protein,Urine Negative; RBC,Urine 14 /HPF (0-4); Urine Color Yellow (Yellow); Urine Specific Gravity 1.012 (1.001-1.035); Urine Urobilinogen < 2.0 EU/DL (0.2-1.0); WBC,Urine 3 /HPF (0-6)
[2017-03-25 04:48] LABS: Basophils % 0.2 % (0.0-0.8); Eosinophils # 0.3 10*3/uL (0.0-0.87); Eosinophils % 5.7 % (0.00-10.9); Hematocrit 27.1 VOL% (42.0-52.0); Hemoglobin 8.6 GM/DL (14.0-18.0); Immature Granulocytes Absolute 0.05 #; Lymphocytes # 0.9 10*3/uL (1.4-4.0); Lymphocytes % 17.3 % (21.2-54.2); Mean Corpuscular HGB Conc 31.7 GM/DL (32-36); Mean Corpuscular Hemoglobin 30 PG (27-34); Mean Corpuscular Volume 94.8 FL (87-102); Mean Platelet Volume 11.1 FL (9.6-12.0); Monocytes # 0.4 10*3/uL (0.11-0.8); Monocytes % 8.3 % (1.7-12.7); Neutrophils # 3.4 10*3/uL (1.4-7.4); Neutrophils % 67.5 % (38.7-73.9); Platelet Count 267 T/CUMM (130-400); Red Blood Count 2.86 MC/CUMM (3.8-5.5); Red Cell Distribution Width 16.9 % (9.3-17.3); White Blood Count 5.1 T/CUMM (4-12)
[2017-03-25 05:30] LABS: Calcium 8.9 MG/DL (8.5-10.1); Osmolality,Calculated 274.7 MOS/KG (273-304); Potassium 3.9 MMOL/L (3.5-5.1)
[2017-03-25] MEDS: cefTAZidime 1,000 MG in SYRINGE 1 EACH IV SCH (05:54)
[2017-03-25] MEDS: SIMETHICONE CHEW 80 MG TABLET PO SCH ×3 (05:55→21:15)
[2017-03-25] MEDS: SODIUM CHLORIDE 0.9% 1,000 ML IV SCH ×2 (06:08→12:40)
[2017-03-25] MEDS: ALBUTEROL/IPRATROPIUM 3 ML NEB RESP TX SCH ×4 (06:20→20:00)
[2017-03-25] MEDS: VALPROIC ACID 250 MG/5 ML UDCUP PO SCH ×2 (09:14→21:15)
[2017-03-25] MEDS: PANTOPRAZOLE 40 MG VIAL IV SCH ×2 (09:15→21:15)
[2017-03-25] MEDS: LEVOFLOXACIN INJ 750 MG in PREMIX 1 EACH IV SCH (09:15)
[2017-03-25] MEDS: DESITIN 4OZ/NYSTATIN 15 GRAM MIXTURE PASTE TOP SCH ×2 (09:22→21:15)
[2017-03-25] MEDS: NYSTATIN POWDER 15 GM BOTTLE TOP PRN ×2 (09:23→16:00)
[2017-03-25] MEDS ORDERED: MIDAZOLAM 2 MG/2 ML VIAL IV ONE (09:45)
[2017-03-25] MEDS: GENTAMICIN INJ 200 MG in SODIUM CHLORIDE 0.9% 100 ML IV SCH (11:42)
[2017-03-25] MEDS: CEFEPIME 2,000 MG in SYRINGE 1 EACH IV SCH ×2 (12:39→18:30)
[2017-03-25] MEDS: ZINC OXIDE PASTE 113 GM TUBE TOP PRN (12:41)
[2017-03-26] MEDS: CEFEPIME 2,000 MG in SYRINGE 1 EACH IV SCH ×3 (04:02→18:30)
[2017-03-26] MEDS: ALBUTEROL/IPRATROPIUM 3 ML NEB RESP TX PRN (04:04)
[2017-03-26 06:28] LABS: Calcium 9.2 MG/DL (8.5-10.1); Osmolality,Calculated 276.5 MOS/KG (273-304); Potassium 3.9 MMOL/L (3.5-5.1)
[2017-03-26 06:34] LABS: Magnesium 1.5 MG/DL (1.8-2.4)
[2017-03-26] MEDS: SIMETHICONE CHEW 80 MG TABLET PO SCH ×3 (07:33→21:31)
[2017-03-26] MEDS: ALBUTEROL/IPRATROPIUM 3 ML NEB RESP TX SCH ×4 (08:08→19:26)
[2017-03-26] MEDS: VALPROIC ACID 250 MG/5 ML UDCUP PO SCH ×2 (09:22→21:32)
[2017-03-26] MEDS: PANTOPRAZOLE 40 MG VIAL IV SCH ×2 (09:22→21:31)
[2017-03-26] MEDS: DESITIN 4OZ/NYSTATIN 15 GRAM MIXTURE PASTE TOP SCH ×2 (09:48→21:32)
[2017-03-26] MEDS: SODIUM CHLORIDE 0.9% 1,000 ML IV SCH (09:52)
[2017-03-26] MEDS: PIPERACILLIN/TAZOBACTAM 3,375 MG in SODIUM CHLORIDE 0.9% 100 ML IV SCH ×2 (11:21→17:37)
[2017-03-26] MEDS: GENTAMICIN INJ 200 MG in SODIUM CHLORIDE 0.9% 100 ML IV SCH (12:15)
[2017-03-27] MEDS: PIPERACILLIN/TAZOBACTAM 3,375 MG in SODIUM CHLORIDE 0.9% 100 ML IV SCH ×2 (01:32→09:22)
[2017-03-27] MEDS: CEFEPIME 2,000 MG in SYRINGE 1 EACH IV SCH (03:43)
[2017-03-27] MEDS: ALBUTEROL/IPRATROPIUM 3 ML NEB RESP TX PRN (04:50)
[2017-03-27 04:55] LABS: Basophils % 0.2 % (0.0-0.8); Eosinophils # 0.4 10*3/uL (0.0-0.87); Eosinophils % 6.2 % (0.00-10.9); Hematocrit 28.2 VOL% (42.0-52.0); Hemoglobin 9.1 GM/DL (14.0-18.0); Immature Granulocytes % 0.5 %; Immature Granulocytes Absolute 0.03 #; Lymphocytes # 0.9 10*3/uL (1.4-4.0); Lymphocytes % 14.7 % (21.2-54.2); Mean Corpuscular HGB Conc 32.3 GM/DL (32-36); Mean Corpuscular Hemoglobin 30 PG (27-34); Mean Corpuscular Volume 91.9 FL (87-102); Mean Platelet Volume 10.4 FL (9.6-12.0); Monocytes # 0.3 10*3/uL (0.11-0.8); Monocytes % 5.7 % (1.7-12.7); Neutrophils # 4.4 10*3/uL (1.4-7.4); Neutrophils % 72.7 % (38.7-73.9); Platelet Count 360 T/CUMM (130-400); Red Blood Count 3.07 MC/CUMM (3.8-5.5); Red Cell Distribution Width 16.7 % (9.3-17.3)
[2017-03-27 05:23] LABS: Calcium 9.2 MG/DL (8.5-10.1); Osmolality,Calculated 276.5 MOS/KG (273-304); Poikilocytosis 1+; Potassium 4.1 MMOL/L (3.5-5.1)
[2017-03-27 05:27] LABS: Albumin 3.3 G/DL (3.4-5.0); Calcium 9.2 MG/DL (8.5-10.1); Osmolality,Calculated 277.5 MOS/KG (273-304); Potassium 4.1 MMOL/L (3.5-5.1)
[2017-03-27] MEDS: SIMETHICONE CHEW 80 MG TABLET PO SCH ×3 (06:15→21:51)
[2017-03-27] MEDS: SODIUM CHLORIDE 0.9% 1,000 ML IV SCH ×2 (07:11→08:00)
[2017-03-27] MEDS: ALBUTEROL/IPRATROPIUM 3 ML NEB RESP TX SCH ×4 (07:53→19:10)
[2017-03-27] MEDS: VALPROIC ACID 250 MG/5 ML UDCUP PO SCH ×2 (09:22→21:51)
[2017-03-27] MEDS: PANTOPRAZOLE 40 MG VIAL IV SCH ×2 (09:22→21:50)
[2017-03-27] MEDS: DESITIN 4OZ/NYSTATIN 15 GRAM MIXTURE PASTE TOP SCH ×2 (09:22→20:05)
[2017-03-27] MEDS: MAGNESIUM SULF RIDER 2 GM in PREMIX 1 EACH IV PRN (09:47)
[2017-03-27] MEDS ORDERED: PIPERACILLIN/TAZOBACTAM 4,500 MG in SODIUM CHLORIDE 0.9% 100 ML IV SCH (10:00)
[2017-03-27] MEDS ORDERED: GENTAMICIN INJ 120 MG in PREMIX 1 EACH IV ONE (12:00)
[2017-03-27] MEDS: GENTAMICIN INJ 200 MG in SODIUM CHLORIDE 0.9% 100 ML IV SCH (12:33)
[2017-03-27] MEDS: PIPERACILLIN/TAZOBACTAM 4,500 MG in SODIUM CHLORIDE 0.9% 100 ML IV SCH (18:22)
[2017-03-28] MEDS: PIPERACILLIN/TAZOBACTAM 4,500 MG in SODIUM CHLORIDE 0.9% 100 ML IV SCH ×2 (02:08→06:08)
[2017-03-28 05:32] LABS: Basophils % 0.3 % (0.0-0.8); Eosinophils # 0.4 10*3/uL (0.0-0.87); Eosinophils % 5.2 % (0.00-10.9); Hematocrit 29.5 VOL% (42.0-52.0); Hemoglobin 9.6 GM/DL (14.0-18.0); Immature Granulocytes Absolute 0.08 #; Lymphocytes # 1.1 10*3/uL (1.4-4.0); Lymphocytes % 14.5 % (21.2-54.2); Mean Corpuscular HGB Conc 32.5 GM/DL (32-36); Mean Corpuscular Hemoglobin 30 PG (27-34); Mean Corpuscular Volume 91.9 FL (87-102); Mean Platelet Volume 10.2 FL (9.6-12.0); Monocytes # 0.6 10*3/uL (0.11-0.8); Monocytes % 7.6 % (1.7-12.7); Neutrophils # 5.6 10*3/uL (1.4-7.4); Neutrophils % 71.4 % (38.7-73.9); Platelet Count 424 T/CUMM (130-400); Red Blood Count 3.21 MC/CUMM (3.8-5.5); Red Cell Distribution Width 16.6 % (9.3-17.3); White Blood Count 7.8 T/CUMM (4-12)
[2017-03-28] MEDS: SIMETHICONE CHEW 80 MG TABLET PO SCH ×3 (05:41→22:08)
[2017-03-28 05:57] LABS: Calcium 9.1 MG/DL (8.5-10.1); Osmolality,Calculated 275.7 MOS/KG (273-304); Potassium 4.6 MMOL/L (3.5-5.1)
[2017-03-28 06:10] LABS: Albumin 3.2 G/DL (3.4-5.0); Calcium 9.3 MG/DL (8.5-10.1); Osmolality,Calculated 273.8 MOS/KG (273-304); Potassium 4.5 MMOL/L (3.5-5.1)
[2017-03-28] MEDS: ALBUTEROL/IPRATROPIUM 3 ML NEB RESP TX SCH ×4 (09:00→20:08)
[2017-03-28] MEDS: VALPROIC ACID 250 MG/5 ML UDCUP PO SCH ×2 (10:00→21:52)
[2017-03-28] MEDS: PANTOPRAZOLE 40 MG VIAL IV SCH ×2 (10:00→21:52)
[2017-03-28] MEDS: DESITIN 4OZ/NYSTATIN 15 GRAM MIXTURE PASTE TOP SCH (10:35)
[2017-03-28] MEDS: GENTAMICIN INJ 320 MG in SODIUM CHLORIDE 0.9% 100 ML IV SCH (14:10)
[2017-03-28] MEDS: SODIUM CHLORIDE 0.9% IV SCH ×2 (15:34→21:52)
[2017-03-28] MEDS: AVIBACTAM IV SCH ×2 (15:34→21:52)
[2017-03-28] MEDS: CEFTAZIDIME IV SCH ×2 (15:34→21:52)
[2017-03-29] MEDS: SIMETHICONE CHEW 80 MG TABLET PO SCH ×3 (05:17→22:02)
[2017-03-29] MEDS: SODIUM CHLORIDE 0.9% IV SCH ×3 (05:20→21:59)
[2017-03-29] MEDS: AVIBACTAM IV SCH ×3 (05:20→21:59)
[2017-03-29] MEDS: CEFTAZIDIME IV SCH ×3 (05:20→21:59)
[2017-03-29 05:51] LABS: Basophils % 0.2 % (0.0-0.8); Eosinophils # 0.4 10*3/uL (0.0-0.87); Eosinophils % 4.9 % (0.00-10.9); Hematocrit 30.3 VOL% (42.0-52.0); Hemoglobin 9.8 GM/DL (14.0-18.0); Immature Granulocytes % 1.1 %; Immature Granulocytes Absolute 0.09 #; Lymphocytes # 1.2 10*3/uL (1.4-4.0); Lymphocytes % 14.1 % (21.2-54.2); Mean Corpuscular HGB Conc 32.3 GM/DL (32-36); Mean Corpuscular Hemoglobin 30 PG (27-34); Mean Corpuscular Volume 92.4 FL (87-102); Mean Platelet Volume 9.9 FL (9.6-12.0); Monocytes # 0.7 10*3/uL (0.11-0.8); Neutrophils % 71.7 % (38.7-73.9); Platelet Count 473 T/CUMM (130-400); Red Blood Count 3.28 MC/CUMM (3.8-5.5); Red Cell Distribution Width 16.8 % (9.3-17.3); White Blood Count 8.4 T/CUMM (4-12)
[2017-03-29 06:32] LABS: Albumin 3.3 G/DL (3.4-5.0); Calcium 9.5 MG/DL (8.5-10.1); Osmolality,Calculated 272.8 MOS/KG (273-304); Potassium 4.7 MMOL/L (3.5-5.1)
[2017-03-29] MEDS: ALBUTEROL/IPRATROPIUM 3 ML NEB RESP TX SCH ×4 (07:25→19:51)
[2017-03-29] MEDS: DESITIN 4OZ/NYSTATIN 15 GRAM MIXTURE PASTE TOP SCH ×3 (07:35→22:02)
[2017-03-29] MEDS: PANTOPRAZOLE 40 MG VIAL IV SCH ×2 (09:16→22:00)
[2017-03-29] MEDS: VALPROIC ACID 250 MG/5 ML UDCUP PO SCH ×2 (09:16→22:01)
[2017-03-29] MEDS: GENTAMICIN INJ 320 MG in SODIUM CHLORIDE 0.9% 100 ML IV SCH (16:40)
[2017-03-30] MEDS: ALBUTEROL/IPRATROPIUM 3 ML NEB RESP TX PRN (03:29)
[2017-03-30] MEDS: AVIBACTAM IV SCH ×3 (05:55→21:29)
[2017-03-30] MEDS: SODIUM CHLORIDE 0.9% IV SCH ×3 (05:55→21:29)
[2017-03-30] MEDS: CEFTAZIDIME IV SCH ×3 (05:55→21:29)
[2017-03-30] MEDS: SIMETHICONE CHEW 80 MG TABLET PO SCH ×3 (05:56→21:30)
[2017-03-30] MEDS: ALBUTEROL/IPRATROPIUM 3 ML NEB RESP TX SCH ×4 (07:32→20:09)
[2017-03-30] MEDS: DESITIN 4OZ/NYSTATIN 15 GRAM MIXTURE PASTE TOP SCH ×2 (09:01→21:31)
[2017-03-30] MEDS: PANTOPRAZOLE 40 MG VIAL IV SCH ×2 (09:56→21:20)
[2017-03-30] MEDS: VALPROIC ACID 250 MG/5 ML UDCUP PO SCH ×2 (09:57→21:29)
[2017-03-30] MEDS: GENTAMICIN INJ 320 MG in SODIUM CHLORIDE 0.9% 100 ML IV SCH (11:41)
[2017-03-31] MEDS: SIMETHICONE CHEW 80 MG TABLET PO SCH ×3 (05:36→21:36)
[2017-03-31] MEDS: CEFTAZIDIME IV SCH ×3 (05:38→21:37)
[2017-03-31] MEDS: SODIUM CHLORIDE 0.9% IV SCH ×3 (05:38→21:37)
[2017-03-31] MEDS: AVIBACTAM IV SCH ×3 (05:38→21:37)
[2017-03-31] MEDS: ALBUTEROL/IPRATROPIUM 3 ML NEB RESP TX SCH ×4 (07:26→19:52)
[2017-03-31 09:12] LABS: Calcium 9.6 MG/DL (8.5-10.1)
[2017-03-31] MEDS: VALPROIC ACID 250 MG/5 ML UDCUP PO SCH ×2 (09:44→21:38)
[2017-03-31] MEDS: PANTOPRAZOLE 40 MG VIAL IV SCH ×2 (09:44→21:39)
[2017-03-31] MEDS: GENTAMICIN INJ 320 MG in SODIUM CHLORIDE 0.9% 100 ML IV SCH (11:17)
[2017-03-31] MEDS: DESITIN 4OZ/NYSTATIN 15 GRAM MIXTURE PASTE TOP SCH ×2 (11:30→21:37)
[2017-04-01] MEDS: AVIBACTAM IV SCH ×3 (05:17→21:54)
[2017-04-01] MEDS: SODIUM CHLORIDE 0.9% IV SCH ×3 (05:17→21:54)
[2017-04-01] MEDS: CEFTAZIDIME IV SCH ×3 (05:17→21:54)
[2017-04-01] MEDS: SIMETHICONE CHEW 80 MG TABLET PO SCH ×3 (05:20→21:54)
[2017-04-01] MEDS: ALBUTEROL/IPRATROPIUM 3 ML NEB RESP TX SCH ×4 (08:19→19:25)
[2017-04-01] MEDS: DESITIN 4OZ/NYSTATIN 15 GRAM MIXTURE PASTE TOP SCH ×2 (10:47→21:54)
[2017-04-01] MEDS: VALPROIC ACID 250 MG/5 ML UDCUP PO SCH ×2 (10:57→21:54)
[2017-04-01] MEDS: FAMOTIDINE 8 MG/ML 50 ML/BOTTLE PER TUBE SCH ×2 (10:58→21:54)
[2017-04-01] MEDS: GENTAMICIN INJ 320 MG in SODIUM CHLORIDE 0.9% 100 ML IV SCH (11:36)
[2017-04-02] MEDS: ALBUTEROL/IPRATROPIUM 3 ML NEB RESP TX PRN (04:08)
[2017-04-02] MEDS: CEFTAZIDIME IV SCH ×2 (06:09→18:50)
[2017-04-02] MEDS: SODIUM CHLORIDE 0.9% IV SCH ×2 (06:09→18:50)
[2017-04-02] MEDS: AVIBACTAM IV SCH ×2 (06:09→18:50)
[2017-04-02 06:12] LABS: Basophils % 0.1 % (0.0-0.8); Eosinophils # 0.3 10*3/uL (0.0-0.87); Eosinophils % 2.9 % (0.00-10.9); Hematocrit 33.5 VOL% (42.0-52.0); Hemoglobin 10.7 GM/DL (14.0-18.0); Immature Granulocytes % 0.8 %; Immature Granulocytes Absolute 0.07 #; Lymphocytes % 10.5 % (21.2-54.2); Mean Corpuscular HGB Conc 31.9 GM/DL (32-36); Mean Corpuscular Hemoglobin 30 PG (27-34); Mean Corpuscular Volume 94.6 FL (87-102); Mean Platelet Volume 9.8 FL (9.6-12.0); Monocytes # 0.9 10*3/uL (0.11-0.8); Monocytes % 9.2 % (1.7-12.7); Neutrophils # 7.1 10*3/uL (1.4-7.4); Neutrophils % 76.5 % (38.7-73.9); Platelet Count 465 T/CUMM (130-400); Red Blood Count 3.54 MC/CUMM (3.8-5.5); Red Cell Distribution Width 17.4 % (9.3-17.3); White Blood Count 9.3 T/CUMM (4-12)
[2017-04-02] MEDS: SIMETHICONE CHEW 80 MG TABLET PO SCH ×3 (06:13→21:19)
[2017-04-02 06:44] LABS: Albumin 3.5 G/DL (3.4-5.0); Calcium 9.6 MG/DL (8.5-10.1); Osmolality,Calculated 276.7 MOS/KG (273-304)
[2017-04-02 06:48] LABS: Magnesium 1.7 MG/DL (1.8-2.4)
[2017-04-02 07:38] LABS: VBG Base Excess 10.4 MEQ/L (0-4); VBG Oxygen Saturation 93.5 %; VBG PCO2 68.2 MMHG (41-51); VBG PH 7.359
[2017-04-02] MEDS: ALBUTEROL/IPRATROPIUM 3 ML NEB RESP TX SCH ×4 (09:02→19:55)
[2017-04-02] MEDS: VALPROIC ACID 250 MG/5 ML UDCUP PO SCH ×2 (10:34→21:19)
[2017-04-02] MEDS: FAMOTIDINE 8 MG/ML 50 ML/BOTTLE PER TUBE SCH ×2 (10:34→21:19)
[2017-04-02] MEDS ORDERED: PIPERACILLIN/TAZOBACTAM 3,375 MG in SODIUM CHLORIDE 0.9% 100 ML IV SCH (14:00)
[2017-04-02] MEDS ORDERED: SODIUM CHLORIDE 0.9% IV SCH (15:00)
[2017-04-02] MEDS ORDERED: PIPERACILLIN IV SCH (15:00)
[2017-04-02] MEDS ORDERED: TAZOBACTAM IV SCH (15:00)
[2017-04-02] MEDS: GENTAMICIN INJ 320 MG in SODIUM CHLORIDE 0.9% 100 ML IV SCH (17:34)
[2017-04-02] MEDS: DESITIN 4OZ/NYSTATIN 15 GRAM MIXTURE PASTE TOP SCH ×2 (18:35→21:19)
[2017-04-03] MEDS: SIMETHICONE CHEW 80 MG TABLET PO SCH ×3 (06:49→21:02)
[2017-04-03] MEDS: ALBUTEROL/IPRATROPIUM 3 ML NEB RESP TX SCH ×4 (07:26→20:26)
[2017-04-03] MEDS: VALPROIC ACID 250 MG/5 ML UDCUP PO SCH ×2 (10:27→20:56)
[2017-04-03] MEDS: FAMOTIDINE 8 MG/ML 50 ML/BOTTLE PER TUBE SCH ×2 (10:27→20:55)
[2017-04-03] MEDS: SODIUM CHLORIDE 0.9% IV SCH (10:39)
[2017-04-03] MEDS: PIPERACILLIN IV SCH (10:39)
[2017-04-03] MEDS: TAZOBACTAM IV SCH (10:39)
[2017-04-03] MEDS: DESITIN 4OZ/NYSTATIN 15 GRAM MIXTURE PASTE TOP SCH ×2 (10:40→20:57)
[2017-04-03] MEDS: GENTAMICIN INJ 320 MG in SODIUM CHLORIDE 0.9% 100 ML IV SCH (16:23)
[2017-04-04] MEDS: SIMETHICONE CHEW 80 MG TABLET PO SCH ×3 (06:25→21:30)
[2017-04-04] MEDS: ALBUTEROL/IPRATROPIUM 3 ML NEB RESP TX SCH ×4 (07:38→20:09)
[2017-04-04] MEDS: VALPROIC ACID 250 MG/5 ML UDCUP PO SCH ×2 (09:29→21:30)
[2017-04-04] MEDS: DESITIN 4OZ/NYSTATIN 15 GRAM MIXTURE PASTE TOP SCH ×2 (09:29→21:30)
[2017-04-04] MEDS: FAMOTIDINE 8 MG/ML 50 ML/BOTTLE PER TUBE SCH ×2 (09:29→21:30)
[2017-04-04] MEDS: PIPERACILLIN IV SCH (10:50)
[2017-04-04] MEDS: SODIUM CHLORIDE 0.9% IV SCH (10:50)
[2017-04-04] MEDS: TAZOBACTAM IV SCH (10:50)
[2017-04-04 10:55] LABS: Calcium 9.5 MG/DL (8.5-10.1); Osmolality,Calculated 273.8 MOS/KG (273-304); Potassium 4.6 MMOL/L (3.5-5.1)
[2017-04-04] MEDS: GENTAMICIN INJ 320 MG in SODIUM CHLORIDE 0.9% 100 ML IV SCH (17:35)
[2017-04-05 06:06] LABS: Calcium 8.8 MG/DL (8.5-10.1); Magnesium 1.8 MG/DL (1.8-2.4); Osmolality,Calculated 275.7 MOS/KG (273-304); Potassium 4.5 MMOL/L (3.5-5.1); Prealbumin 20.6 MG/DL (20-40)
[2017-04-05] MEDS: SIMETHICONE CHEW 80 MG TABLET PO SCH ×3 (06:39→21:23)
[2017-04-05] MEDS: ALBUTEROL/IPRATROPIUM 3 ML NEB RESP TX SCH ×4 (07:35→20:12)
[2017-04-05] MEDS: MAGNESIUM SULF RIDER 2 GM in PREMIX 1 EACH IV PRN (09:52)
[2017-04-05] MEDS: VALPROIC ACID 250 MG/5 ML UDCUP PO SCH ×2 (09:55→21:23)
[2017-04-05] MEDS: FAMOTIDINE 8 MG/ML 50 ML/BOTTLE PER TUBE SCH ×2 (10:01→21:23)
[2017-04-05] MEDS: DESITIN 4OZ/NYSTATIN 15 GRAM MIXTURE PASTE TOP SCH ×2 (10:01→21:23)
[2017-04-05] MEDS: SODIUM CHLORIDE 0.9% IV SCH (13:11)
[2017-04-05] MEDS: PIPERACILLIN IV SCH (13:11)
[2017-04-05] MEDS: TAZOBACTAM IV SCH (13:11)
[2017-04-05] MEDS: GENTAMICIN INJ 320 MG in SODIUM CHLORIDE 0.9% 100 ML IV SCH (16:00)
[2017-04-05] MEDS: FLUCONAZOLE 100 MG TABLET PO SCH (16:01)
[2017-04-06 05:28] LABS: Basophils % 0.2 % (0.0-0.8); Eosinophils # 0.5 10*3/uL (0.0-0.87); Eosinophils % 5.4 % (0.00-10.9); Hematocrit 30.2 VOL% (42.0-52.0); Hemoglobin 9.5 GM/DL (14.0-18.0); Immature Granulocytes % 0.4 %; Immature Granulocytes Absolute 0.04 #; Lymphocytes % 10.4 % (21.2-54.2); Mean Corpuscular HGB Conc 31.5 GM/DL (32-36); Mean Corpuscular Hemoglobin 30 PG (27-34); Mean Corpuscular Volume 96.8 FL (87-102); Monocytes # 0.5 10*3/uL (0.11-0.8); Monocytes % 5.8 % (1.7-12.7); Neutrophils # 7.1 10*3/uL (1.4-7.4); Neutrophils % 77.8 % (38.7-73.9); Platelet Count 345 T/CUMM (130-400); Red Blood Count 3.12 MC/CUMM (3.8-5.5); Red Cell Distribution Width 17.5 % (9.3-17.3); White Blood Count 9.1 T/CUMM (4-12)
[2017-04-06] MEDS: SIMETHICONE CHEW 80 MG TABLET PO SCH ×3 (05:39→21:01)
[2017-04-06 06:07] LABS: INR 1.1; PT Patient Result 11.5 SECS
[2017-04-06] MEDS: ALBUTEROL/IPRATROPIUM 3 ML NEB RESP TX SCH ×4 (07:42→20:03)
[2017-04-06] MEDS ORDERED: MIDAZOLAM 2 MG/2 ML VIAL ONE (09:49)
[2017-04-06] MEDS: FAMOTIDINE 8 MG/ML 50 ML/BOTTLE PER TUBE SCH ×2 (09:55→21:00)
[2017-04-06] MEDS: VALPROIC ACID 250 MG/5 ML UDCUP PO SCH ×2 (09:55→21:00)
[2017-04-06] MEDS: FLUCONAZOLE 100 MG TABLET PO SCH (09:55)
[2017-04-06] MEDS: DESITIN 4OZ/NYSTATIN 15 GRAM MIXTURE PASTE TOP SCH ×2 (09:56→21:00)
[2017-04-06] MEDS: TAZOBACTAM IV SCH (12:40)
[2017-04-06] MEDS: SODIUM CHLORIDE 0.9% IV SCH (12:40)
[2017-04-06] MEDS: PIPERACILLIN IV SCH (12:40)
[2017-04-06] MEDS: GENTAMICIN INJ 320 MG in SODIUM CHLORIDE 0.9% 100 ML IV SCH (15:06)
[2017-04-07] MEDS: SIMETHICONE CHEW 80 MG TABLET PO SCH ×3 (06:21→21:53)
[2017-04-07] MEDS: ALBUTEROL/IPRATROPIUM 3 ML NEB RESP TX SCH ×4 (07:42→19:34)
[2017-04-07] MEDS ORDERED: FLUCONAZOLE 100 MG TABLET PO SCH (10:30)
[2017-04-07] MEDS: DESITIN 4OZ/NYSTATIN 15 GRAM MIXTURE PASTE TOP SCH ×2 (10:38→21:53)
[2017-04-07] MEDS: VALPROIC ACID 250 MG/5 ML UDCUP PO SCH ×2 (10:38→21:53)
[2017-04-07] MEDS: FLUCONAZOLE 100 MG TABLET PO SCH (10:38)
[2017-04-07] MEDS: FAMOTIDINE 8 MG/ML 50 ML/BOTTLE PER TUBE SCH ×2 (11:06→22:20)
[2017-04-07] MEDS: SODIUM CHLORIDE 0.9% IV SCH (13:17)
[2017-04-07] MEDS: TAZOBACTAM IV SCH (13:17)
[2017-04-07] MEDS: PIPERACILLIN IV SCH (13:17)
[2017-04-07] MEDS: GENTAMICIN INJ 320 MG in SODIUM CHLORIDE 0.9% 100 ML IV SCH (18:07)
[2017-04-08] MEDS: SIMETHICONE CHEW 80 MG TABLET PO SCH ×3 (05:27→22:50)
[2017-04-08] MEDS: ALBUTEROL/IPRATROPIUM 3 ML NEB RESP TX SCH ×4 (07:59→19:51)
[2017-04-08] MEDS: DESITIN 4OZ/NYSTATIN 15 GRAM MIXTURE PASTE TOP SCH ×3 (09:40→22:50)
[2017-04-08] MEDS: VALPROIC ACID 250 MG/5 ML UDCUP PO SCH ×2 (09:40→20:39)
[2017-04-08] MEDS: FAMOTIDINE 8 MG/ML 50 ML/BOTTLE PER TUBE SCH ×2 (09:40→20:38)
[2017-04-08] MEDS: TAZOBACTAM IV SCH (13:10)
[2017-04-08] MEDS: PIPERACILLIN IV SCH (13:10)
[2017-04-08] MEDS: SODIUM CHLORIDE 0.9% IV SCH (13:10)
[2017-04-08] MEDS: GENTAMICIN INJ 320 MG in SODIUM CHLORIDE 0.9% 100 ML IV SCH (16:13)
[2017-04-09] MEDS: SIMETHICONE CHEW 80 MG TABLET PO SCH ×3 (05:52→21:56)
[2017-04-09 06:21] LABS: Basophils % 0.2 % (0.0-0.8); Eosinophils # 0.3 10*3/uL (0.0-0.87); Eosinophils % 5.7 % (0.00-10.9); Hematocrit 31.3 VOL% (42.0-52.0); Hemoglobin 9.7 GM/DL (14.0-18.0); Immature Granulocytes % 0.3 %; Immature Granulocytes Absolute 0.02 #; Lymphocytes # 0.8 10*3/uL (1.4-4.0); Lymphocytes % 13.3 % (21.2-54.2); Mean Corpuscular Hemoglobin 30 PG (27-34); Mean Corpuscular Volume 97.8 FL (87-102); Mean Platelet Volume 9.9 FL (9.6-12.0); Monocytes # 0.5 10*3/uL (0.11-0.8); Monocytes % 9.2 % (1.7-12.7); Neutrophils # 4.1 10*3/uL (1.4-7.4); Neutrophils % 71.3 % (38.7-73.9); Platelet Count 352 T/CUMM (130-400); Red Cell Distribution Width 17.6 % (9.3-17.3); White Blood Count 5.8 T/CUMM (4-12)
[2017-04-09] MEDS: DESITIN 4OZ/NYSTATIN 15 GRAM MIXTURE PASTE TOP SCH ×2 (07:00→21:56)
[2017-04-09] MEDS: ALBUTEROL/IPRATROPIUM 3 ML NEB RESP TX SCH ×4 (07:50→20:34)
[2017-04-09 08:10] LABS: Calcium 9.8 MG/DL (8.5-10.1); Osmolality,Calculated 269.2 MOS/KG (273-304); Potassium 4.8 MMOL/L (3.5-5.1)
[2017-04-09 09:00] LABS: VBG Base Excess 10.7 MEQ/L (0-4); VBG HCO3 34.4 MEQ/L (24-28); VBG Oxygen Saturation 98.1 %; VBG PCO2 59.7 MMHG (41-51); VBG PH 7.407; VBG PO2 94.5 MMHG (17-40)
[2017-04-09] MEDS: VALPROIC ACID 250 MG/5 ML UDCUP PO SCH ×2 (09:26→21:56)
[2017-04-09] MEDS: FAMOTIDINE 8 MG/ML 50 ML/BOTTLE PER TUBE SCH ×2 (09:32→21:56)
[2017-04-09] MEDS: SODIUM CHLORIDE 0.9% IV SCH (12:47)
[2017-04-09] MEDS: PIPERACILLIN IV SCH (12:47)
[2017-04-09] MEDS: TAZOBACTAM IV SCH (12:47)
[2017-04-09] MEDS: GENTAMICIN INJ 320 MG in SODIUM CHLORIDE 0.9% 100 ML IV SCH (16:06)
[2017-04-10] MEDS: SIMETHICONE CHEW 80 MG TABLET PO SCH ×3 (05:27→22:07)
[2017-04-10] MEDS: ALBUTEROL/IPRATROPIUM 3 ML NEB RESP TX SCH ×4 (07:24→19:28)
[2017-04-10] MEDS: VALPROIC ACID 250 MG/5 ML UDCUP PO SCH ×2 (10:03→22:07)
[2017-04-10] MEDS: FAMOTIDINE 8 MG/ML 50 ML/BOTTLE PER TUBE SCH ×2 (10:03→22:06)
[2017-04-10] MEDS: SODIUM CHLORIDE 0.9% IV SCH (13:10)
[2017-04-10] MEDS: PIPERACILLIN IV SCH (13:10)
[2017-04-10] MEDS: TAZOBACTAM IV SCH (13:10)
[2017-04-10] MEDS: DESITIN 4OZ/NYSTATIN 15 GRAM MIXTURE PASTE TOP SCH ×2 (13:18→22:07)
[2017-04-10] MEDS: GENTAMICIN INJ 320 MG in SODIUM CHLORIDE 0.9% 100 ML IV SCH (16:15)
[2017-04-11] MEDS: SIMETHICONE CHEW 80 MG TABLET PO SCH (05:24)
[2017-04-11 07:03] VITALS: BP 114/68
[2017-04-11] MEDS: ALBUTEROL/IPRATROPIUM 3 ML NEB RESP TX SCH ×3 (07:45→15:02)
[2017-04-11] MEDS: DESITIN 4OZ/NYSTATIN 15 GRAM MIXTURE PASTE TOP SCH (09:15)
[2017-04-11] MEDS: VALPROIC ACID 250 MG/5 ML UDCUP PO SCH (09:15)
[2017-04-11] MEDS: FAMOTIDINE 8 MG/ML 50 ML/BOTTLE PER TUBE SCH (09:15)
[2017-04-11] MEDS ORDERED: INFLUENZA VIRUS VACCINE 0.5 ML SYRINGE IM ONE (12:02)
== END 2017-04-11 15:55 | disposition home health service (06) | DRG 344 ==
LOC: N.CC 15:35 → SUPCPDRO 15:35 → N.5E 03-17 15:19 → N.CVR 03-20 12:37 → N.ICU 03-20 19:54 → N.3E 03-27 13:06
PROVIDERS: ADMIT Internal Medicine Pulmonary Disease; ATTEND Internal Medicine Pulmonary Disease
PROC: EGDWPEG (ICD-10-PCS; 2017-02-28 09:05)

== ENCOUNTER 2019-05-27 07:48 | Inpatient (IN) ==
[2019-05-27] MEDS ORDERED: SODIUM CHLORIDE 0.9% 900 ML IV STA (08:18)
[2019-05-27 08:49] LABS: Basophils # 0.1 10*3/uL (0.0-0.2); Hematocrit 54.7 VOL% (42.0-52.0); Hemoglobin 18.6 GM/DL (14.0-18.0); Immature Granulocytes % 0.6 %; Immature Granulocytes Absolute 0.03 #; Lymphocytes # 0.3 10*3/uL (1.4-4.0); Lymphocytes % 6.4 % (21.2-54.2); Mean Corpuscular Volume 91.3 FL (87-102); Mean Platelet Volume 11.5 FL (9.6-12.0); Monocytes % 10.4 % (1.7-12.7); Neutrophils % 81.6 % (38.7-73.9); Platelet Count 204 T/CUMM (130-400); Red Blood Count 5.99 MC/CUMM (3.8-5.5); Red Cell Distribution Width 14.3 % (9.3-17.3); White Blood Count 5.2 T/CUMM (4-12)
[2019-05-27 08:53] LABS: Apearance,Urine CLOUDY (Clear); Bilirubin,Urine Negative (Negative); Blood, Urine Small mg/dL (Negative); Glucose,Urine (UA) 50 mg/dL (Negative); Ketones,Urine 5 mg/dL (Negative); Mucus,Urine Few /LPF (Occasional); Nitrite,Urine Negative (Negative); Protein,Urine 100 MG/DL; RBC,Urine 14 /HPF (0-4); Squamous Epithelial Cell,Urine Occasional /HPF (0-10); Urine Color Amber (Yellow); Urine Specific Gravity 1.023 (1.001-1.035); WBC,Urine 2 /HPF (0-6)
[2019-05-27 08:54] LABS: Albumin 4.5 G/DL (3.4-5.0); Bilirubin,Total 1.2 MG/DL (0.2-1.0); Calcium 12.2 MG/DL (8.5-10.1); Osmolality,Calculated 276.9 MOS/KG (273-304); Total Protein 9.8 G/DL (6.4-8.3)
[2019-05-27 09:03] LABS: Band Neutrophils 27 % (0-10); Lymphocytes 6 % (20-55); Myelocytes 1 %; Platelet Estimate Adequate; Segmented Neutrophils 57 % (50-85); Total Cells Counted 100
[2019-05-27] MEDS ORDERED: cefTRIAXone 1,000 MG in SODIUM CHLORIDE 0.9% 100 ML IV STA (09:12)
[2019-05-27] MEDS ORDERED: ONDANSETRON 4 MG/2 ML VIAL IV STA (09:15)
[2019-05-27] MEDS ORDERED: ALBUTEROL 2.5 MG/3 ML NEB RESP TX PRN (10:01)
[2019-05-27] MEDS ORDERED: ACETAMINOPHEN 325 MG TABLET PO PRN (10:01)
[2019-05-27] MEDS ORDERED: SODIUM CHLORIDE 0.9% 1,350 ML IV ONE (10:04)
[2019-05-27] MEDS ORDERED: ZINC OXIDE PASTE 113 GM TUBE TOP PRN (10:06)
[2019-05-27] MEDS: FAMOTIDINE 20 MG/2 ML VIAL IV SCH (11:58)
[2019-05-27] MEDS: ENOXAPARIN 30 MG/0.3 ML SYRINGE SUBCUT SCH (11:59)
[2019-05-27] MEDS: PIPERACILLIN/TAZOBACTAM 3,375 MG in SODIUM CHLORIDE 0.9% 100 ML IV SCH ×2 (11:59→21:59)
[2019-05-27 15:55] LABS: Calcium 9.3 MG/DL (8.5-10.1); Osmolality,Calculated 281.4 MOS/KG (273-304)
[2019-05-27] MEDS: ONDANSETRON 4 MG/2 ML VIAL IV PRN (19:00)
[2019-05-27] MEDS: VALPROIC ACID 250 MG/5 ML UDCUP PO SCH (20:37)
[2019-05-27 21:30] LABS: Hepatitis B Core IgM Quant 0.11 Index; Hepatitis B Surface Ag Quant 0.52 Index; Hepatitis B Surface Ag Result Negative (Negative); Hepatitis C Virus Ab Quant 0.02 Index; Hepatitis C Virus Ab Result Negative (Negative)
[2019-05-28 04:28] LABS: Basophils % 0.8 % (0.0-0.8); Eosinophils % 0.4 % (0.00-10.9); Hematocrit 49.3 VOL% (42.0-52.0); Hemoglobin 15.8 GM/DL (14.0-18.0); Immature Granulocytes % 0.4 %; Immature Granulocytes Absolute 0.02 #; Lymphocytes # 0.6 10*3/uL (1.4-4.0); Lymphocytes % 11.4 % (21.2-54.2); Mean Platelet Volume 11.6 FL (9.6-12.0); Monocytes % 14.9 % (1.7-12.7); Neutrophils % 72.1 % (38.7-73.9); Platelet Count 195 T/CUMM (130-400); Red Blood Count 5.08 MC/CUMM (3.8-5.5); Red Cell Distribution Width 14.3 % (9.3-17.3); White Blood Count 4.8 T/CUMM (4-12)
[2019-05-28 04:58] LABS: Band Neutrophils 21 % (0-10); Eosinophils 1 % (0-10); Lymphocytes 13 % (20-55); Metamyelocytes 2 %; Segmented Neutrophils 45 % (50-85); Total Cells Counted 100
[2019-05-28 04:59] LABS: Albumin 3.5 G/DL (3.4-5.0); Bilirubin,Direct 0.33 MG/DL (0.0-0.20); Bilirubin,Indirect 0.7 MG/DL (0.0-1.0); Macrocytosis Slight; Platelet Estimate Adequate; Total Protein 8.3 G/DL (6.4-8.3)
[2019-05-28 05:00] LABS: Albumin 3.6 G/DL (3.4-5.0); Bilirubin,Total 1.7 MG/DL (0.2-1.0); Calcium 9.9 MG/DL (8.5-10.1); Osmolality,Calculated 284.2 MOS/KG (273-304); Total Protein 8.3 G/DL (6.4-8.3)
[2019-05-28] MEDS ORDERED: SODIUM CHLORIDE 0.45% 1,000 ML IV SCH (09:00)
[2019-05-28] MEDS: FAMOTIDINE 20 MG/2 ML VIAL IV SCH (09:53)
[2019-05-28] MEDS: ENOXAPARIN 30 MG/0.3 ML SYRINGE SUBCUT SCH (09:57)
[2019-05-28] MEDS: VALPROIC ACID IV SCH ×4 (10:25→23:12)
[2019-05-28] MEDS: SODIUM CHLORIDE 0.9% IV SCH ×4 (10:25→23:12)
[2019-05-28] MEDS: MONTELUKAST CHEW 5 MG TABLET PO SCH (11:00)
[2019-05-28] MEDS: PIPERACILLIN/TAZOBACTAM 3,375 MG in SODIUM CHLORIDE 0.9% 100 ML IV SCH ×2 (11:00→22:13)
[2019-05-28] MEDS ORDERED: ursodioL 300 MG CAPSULE PO ONE (12:39)
[2019-05-28] MEDS: ONDANSETRON 4 MG/2 ML VIAL IV PRN (17:35)
[2019-05-29 04:00] LABS: Albumin 3.6 G/DL (3.4-5.0); Bilirubin,Total 1.2 MG/DL (0.2-1.0); Calcium 9.3 MG/DL (8.5-10.1); Osmolality,Calculated 295.5 MOS/KG (273-304); Total Protein 8.6 G/DL (6.4-8.3)
[2019-05-29] MEDS: SODIUM CHLORIDE 0.9% IV SCH ×4 (05:07→22:09)
[2019-05-29] MEDS: VALPROIC ACID IV SCH ×4 (05:07→22:09)
[2019-05-29] MEDS: VALPROIC ACID 250 MG/5 ML UDCUP PO SCH (07:37)
[2019-05-29] MEDS: MONTELUKAST CHEW 5 MG TABLET PO SCH (08:22)
[2019-05-29] MEDS: FAMOTIDINE 20 MG/2 ML VIAL IV SCH (09:30)
[2019-05-29] MEDS: ENOXAPARIN 30 MG/0.3 ML SYRINGE SUBCUT SCH (09:30)
[2019-05-29] MEDS: PIPERACILLIN/TAZOBACTAM 3,375 MG in SODIUM CHLORIDE 0.9% 100 ML IV SCH ×2 (09:30→23:35)
[2019-05-29] MEDS: LACTATED RINGERS 1,000 ML IV SCH (11:34)
[2019-05-29 15:44] LABS: Apearance,Urine CLOUDY (Clear); Bilirubin,Urine Negative (Negative); Blood, Urine Moderate mg/dL (Negative); Glucose,Urine (UA) Negative (Negative); Ketones,Urine 5 mg/dL (Negative); Nitrite,Urine Negative (Negative); Protein,Urine Negative; RBC,Urine 14 /HPF (0-4); Urine Color Amber (Yellow); Urine Specific Gravity 1.024 (1.001-1.035); Urine Urobilinogen < 2.0 EU/DL (0.2-1.0); WBC,Urine 3 /HPF (0-6)
[2019-05-29] MEDS ORDERED: SODIUM CHLORIDE 0.9% 1,000 ML IV ONE (18:46)
[2019-05-30] MEDS: LACTATED RINGERS 1,000 ML IV SCH ×2 (03:52→09:44)
[2019-05-30] MEDS: VALPROIC ACID IV SCH ×4 (05:00→22:20)
[2019-05-30] MEDS: SODIUM CHLORIDE 0.9% IV SCH ×4 (05:00→22:20)
[2019-05-30 05:36] LABS: Basophils % 0.5 % (0.0-0.8); Eosinophils % 0.7 % (0.00-10.9); Hematocrit 44.8 VOL% (42.0-52.0); Hemoglobin 14.6 GM/DL (14.0-18.0); Immature Granulocytes Absolute 0.12 #; Lymphocytes # 0.9 10*3/uL (1.4-4.0); Lymphocytes % 15.1 % (21.2-54.2); Mean Corpuscular HGB Conc 32.6 GM/DL (32-36); Mean Corpuscular Volume 95.5 FL (87-102); Mean Platelet Volume 11.6 FL (9.6-12.0); Monocytes % 15.1 % (1.7-12.7); Neutrophils % 66.6 % (38.7-73.9); Platelet Count 197 T/CUMM (130-400); Red Blood Count 4.69 MC/CUMM (3.8-5.5); Red Cell Distribution Width 14.4 % (9.3-17.3)
[2019-05-30 05:48] LABS: Calcium 8.8 MG/DL (8.5-10.1); Osmolality,Calculated 308.3 MOS/KG (273-304)
[2019-05-30 06:00] LABS: Bilirubin,Total 0.8 MG/DL (0.2-1.0); Calcium 8.8 MG/DL (8.5-10.1); Osmolality,Calculated 308.3 MOS/KG (273-304)
[2019-05-30] MEDS: MONTELUKAST CHEW 5 MG TABLET PO SCH (08:05)
[2019-05-30] MEDS: FAMOTIDINE 20 MG/2 ML VIAL IV SCH (10:41)
[2019-05-30] MEDS: ENOXAPARIN 30 MG/0.3 ML SYRINGE SUBCUT SCH (10:41)
[2019-05-30] MEDS: PIPERACILLIN/TAZOBACTAM 3,375 MG in SODIUM CHLORIDE 0.9% 100 ML IV SCH ×2 (10:41→23:27)
[2019-05-30] MEDS: DEXTROSE 5% LACTATED RINGERS 1,000 ML IV SCH ×2 (10:41→18:27)
[2019-05-31] MEDS: DEXTROSE 5% LACTATED RINGERS 1,000 ML IV SCH (02:18)
[2019-05-31] MEDS: SODIUM CHLORIDE 0.9% IV SCH ×4 (05:03→22:16)
[2019-05-31] MEDS: VALPROIC ACID IV SCH ×4 (05:03→22:16)
[2019-05-31 07:05] LABS: Albumin 2.7 G/DL (3.4-5.0); Bilirubin,Total 0.42 MG/DL (0.2-1.0); Calcium 8.9 MG/DL (8.5-10.1); Osmolality,Calculated 303.3 MOS/KG (273-304); Total Protein 5.5 G/DL (6.4-8.3)
[2019-05-31] MEDS: MONTELUKAST CHEW 5 MG TABLET PO SCH (08:29)
[2019-05-31] MEDS: ENOXAPARIN 30 MG/0.3 ML SYRINGE SUBCUT SCH (10:33)
[2019-05-31] MEDS: DEXT 5% NACL 0.45% KCL 20 MEQ 20 MEQ/1,000 ML BAG IV SCH ×2 (10:33→17:31)
[2019-05-31] MEDS: PIPERACILLIN/TAZOBACTAM 3,375 MG in SODIUM CHLORIDE 0.9% 100 ML IV SCH ×2 (10:34→23:23)
[2019-05-31] MEDS: FAMOTIDINE 20 MG/2 ML VIAL IV SCH (10:34)
[2019-06-01] MEDS: DEXT 5% NACL 0.45% KCL 20 MEQ 20 MEQ/1,000 ML BAG IV SCH ×3 (03:38→16:33)
[2019-06-01] MEDS: VALPROIC ACID IV SCH ×4 (05:40→22:14)
[2019-06-01] MEDS: SODIUM CHLORIDE 0.9% IV SCH ×4 (05:40→22:14)
[2019-06-01] MEDS: MONTELUKAST CHEW 5 MG TABLET PO SCH (08:05)
[2019-06-01 08:14] LABS: Calcium 8.6 MG/DL (8.5-10.1); Osmolality,Calculated 286.8 MOS/KG (273-304)
[2019-06-01] MEDS: PIPERACILLIN/TAZOBACTAM 3,375 MG in SODIUM CHLORIDE 0.9% 100 ML IV SCH ×2 (10:16→23:29)
[2019-06-01] MEDS: FAMOTIDINE 20 MG/2 ML VIAL IV SCH (10:18)
[2019-06-01] MEDS: ENOXAPARIN 30 MG/0.3 ML SYRINGE SUBCUT SCH (10:18)
[2019-06-01] MEDS: NYSTATIN POWDER 15 GM BOTTLE TOP SCH (22:14)
[2019-06-02] MEDS: SODIUM CHLORIDE 0.9% IV SCH ×4 (05:30→22:23)
[2019-06-02] MEDS: VALPROIC ACID IV SCH ×4 (05:30→22:23)
[2019-06-02] MEDS: FAMOTIDINE 20 MG/2 ML VIAL IV SCH (09:33)
[2019-06-02] MEDS: ENOXAPARIN 30 MG/0.3 ML SYRINGE SUBCUT SCH (09:33)
[2019-06-02] MEDS: PIPERACILLIN/TAZOBACTAM 3,375 MG in SODIUM CHLORIDE 0.9% 100 ML IV SCH (09:34)
[2019-06-02] MEDS: NYSTATIN POWDER 15 GM BOTTLE TOP SCH ×2 (09:34→21:25)
[2019-06-02] MEDS: MONTELUKAST CHEW 5 MG TABLET PO SCH (09:35)
[2019-06-02] MEDS: DEXT 5% NACL 0.45% KCL 20 MEQ 20 MEQ/1,000 ML BAG IV SCH (15:01)
[2019-06-03] MEDS: SODIUM CHLORIDE 0.9% IV SCH ×4 (04:24→23:04)
[2019-06-03] MEDS: DEXT 5% NACL 0.45% KCL 20 MEQ 20 MEQ/1,000 ML BAG IV SCH (04:24)
[2019-06-03] MEDS: VALPROIC ACID IV SCH ×4 (04:24→23:04)
[2019-06-03 08:46] LABS: Basophils % 0.4 % (0.0-0.8); Eosinophils # 0.3 10*3/uL (0.0-0.87); Eosinophils % 3.8 % (0.00-10.9); Hematocrit 40.6 VOL% (42.0-52.0); Hemoglobin 12.7 GM/DL (14.0-18.0); Immature Granulocytes Absolute 0.44 #; Lymphocytes # 1.3 10*3/uL (1.4-4.0); Mean Corpuscular HGB Conc 31.3 GM/DL (32-36); Mean Corpuscular Volume 97.6 FL (87-102); Mean Platelet Volume 10.7 FL (9.6-12.0); Monocytes % 6.9 % (1.7-12.7); Neutrophils % 65.9 % (38.7-73.9); Platelet Count 283 T/CUMM (130-400); Red Blood Count 4.16 MC/CUMM (3.8-5.5); Red Cell Distribution Width 14.8 % (9.3-17.3); White Blood Count 7.4 T/CUMM (4-12)
[2019-06-03] MEDS: MONTELUKAST CHEW 5 MG TABLET PO SCH (08:50)
[2019-06-03] MEDS: NYSTATIN POWDER 15 GM BOTTLE TOP SCH ×2 (08:50→20:48)
[2019-06-03 09:09] LABS: Band Neutrophils 1 % (0-10); Eosinophils 5 % (0-10); Lymphocytes 16 % (20-55); Segmented Neutrophils 72 % (50-85); Total Cells Counted 100
[2019-06-03 09:10] LABS: Hypochromasia Slight
[2019-06-03 09:13] LABS: Calcium 8.6 MG/DL (8.5-10.1); Osmolality,Calculated 275.4 MOS/KG (273-304)
[2019-06-03] MEDS: ENOXAPARIN 30 MG/0.3 ML SYRINGE SUBCUT SCH (10:17)
[2019-06-03] MEDS: FAMOTIDINE 20 MG/2 ML VIAL IV SCH (10:17)
[2019-06-04] MEDS: SODIUM CHLORIDE 0.9% IV SCH ×2 (05:22→12:15)
[2019-06-04] MEDS: VALPROIC ACID IV SCH ×2 (05:22→12:15)
[2019-06-04 07:42] LABS: Calcium 9.1 MG/DL (8.5-10.1); Osmolality,Calculated 274.4 MOS/KG (273-304)
[2019-06-04] MEDS: MONTELUKAST CHEW 5 MG TABLET PO SCH (08:33)
[2019-06-04] MEDS: NYSTATIN POWDER 15 GM BOTTLE TOP SCH (08:33)
[2019-06-04] MEDS: ENOXAPARIN 30 MG/0.3 ML SYRINGE SUBCUT SCH (10:00)
[2019-06-04] MEDS: FAMOTIDINE 20 MG/2 ML VIAL IV SCH (10:01)
[2019-06-04 12:15] VITALS: BP 124/62
== END 2019-06-04 13:48 | disposition home health service (06) | DRG 871 ==
LOC: N.ED 07:48 → SUATTDRO 10:01 → N.EDINP 10:01 → N.CC 10:53 → N.5E 05-28 11:35
PROVIDERS: ADMIT Internal Medicine; ATTEND Family Medicine

== ENCOUNTER 2021-03-27 08:58 | Inpatient (IN) ==
[2021-03-27] MEDS ORDERED: ONDANSETRON 4 MG/2 ML VIAL IV STA (09:19)
[2021-03-27] MEDS ORDERED: SODIUM CHLORIDE 0.9% 1,000 ML IV STA (09:19)
[2021-03-27 09:47] LABS: Basophils % 0.5 % (0.0-0.8); Eosinophils # 0.1 10*3/uL (0.0-0.87); Eosinophils % 1.5 % (0.00-10.9); Hematocrit 52.1 VOL% (42.0-52.0); Hemoglobin 17.3 GM/DL (14.0-18.0); Immature Granulocytes % 0.2 %; Immature Granulocytes Absolute 0.01 #; Lymphocytes # 0.3 10*3/uL (1.4-4.0); Lymphocytes % 5.8 % (21.2-54.2); Mean Corpuscular HGB Conc 33.2 GM/DL (32-36); Mean Corpuscular Volume 93.2 FL (87-102); Mean Platelet Volume 10.5 FL (9.6-12.0); Monocytes % 19.6 % (1.7-12.7); Neutrophils % 72.4 % (38.7-73.9); Platelet Count 276 T/CUMM (130-400); Red Blood Count 5.59 MC/CUMM (3.8-5.5); Red Cell Distribution Width 14.8 % (9.3-17.3); White Blood Count 5.9 T/CUMM (4-12)
[2021-03-27] MEDS ORDERED: MORPHINE 2 MG/1 ML SYRINGE IV STA (10:04)
[2021-03-27] MEDS ORDERED: diphenhydrAMINE 50 MG/1 ML VIAL IV STA (10:07)
[2021-03-27 10:11] LABS: Alanine Aminotransferase 41 U/L (16-61); Albumin 4.6 G/DL (3.4-5.0); Alkaline Phosphatase 121 U/L (45-117); Amylase 44 U/L (25-115); Aspartate Amino Transferase 35 U/L (0-37); Blood Urea Nitrogen 47 MG/DL (7-18); Carbon Dioxide 32 MMOL/L (21-32); Estimated Glom Filtration Rate 49 ML/MIN; Glucose 122 MG/DL (74-106); Osmolality,Calculated 285.8 MOS/KG (273-304); Potassium 4.7 MMOL/L (3.5-5.1); Sodium 137 MMOL/L (136-145)
[2021-03-27] MEDS ORDERED: ACETAMINOPHEN 325 MG TABLET PO PRN (11:01)
[2021-03-27 11:08] LABS: Band Neutrophils 4 % (0-10); Eosinophils 4 % (0-10); Lymphocytes 3 % (20-55); Platelet Estimate Normal; Segmented Neutrophils 59 % (50-85); Total Cells Counted 100
[2021-03-27] MEDS ORDERED: VALPROIC ACID INJ 250 MG in SODIUM CHLORIDE 0.9% 100 ML IV STA (12:10)
[2021-03-27] MEDS ORDERED: FAMOTIDINE 20 MG/2 ML VIAL IV STA (12:10)
[2021-03-27] MEDS: DEXTROSE 5% NACL 0.45% 1,000 ML IV SCH (12:20)
[2021-03-27] MEDS: VALPROIC ACID INJ 250 MG in SODIUM CHLORIDE 0.9% 100 ML IV SCH (13:00)
[2021-03-27] MEDS: MORPHINE 2 MG/1 ML SYRINGE IV PRN ×2 (16:33→22:27)
[2021-03-28] MEDS: FAMOTIDINE 20 MG/2 ML VIAL IV SCH ×3 (00:20→22:14)
[2021-03-28] MEDS: VALPROIC ACID INJ 250 MG in SODIUM CHLORIDE 0.9% 100 ML IV SCH ×3 (01:18→22:14)
[2021-03-28] MEDS: DEXTROSE 5% NACL 0.45% 1,000 ML IV SCH ×3 (03:39→14:33)
[2021-03-28 06:18] LABS: Basophils % 0.4 % (0.0-0.8); Eosinophils # 0.2 10*3/uL (0.0-0.87); Eosinophils % 9.5 % (0.00-10.9); Hematocrit 47.7 VOL% (42.0-52.0); Hemoglobin 15.5 GM/DL (14.0-18.0); Immature Granulocytes % 0.4 %; Immature Granulocytes Absolute 0.01 #; Lymphocytes # 0.3 10*3/uL (1.4-4.0); Lymphocytes % 14.3 % (21.2-54.2); Mean Corpuscular HGB Conc 32.5 GM/DL (32-36); Mean Platelet Volume 10.1 FL (9.6-12.0); Monocytes % 37.2 % (1.7-12.7); Neutrophils % 38.2 % (38.7-73.9); Platelet Count 237 T/CUMM (130-400); Red Blood Count 4.97 MC/CUMM (3.8-5.5); White Blood Count 2.3 T/CUMM (4-12)
[2021-03-28 06:47] LABS: Calcium 9.4 MG/DL (8.5-10.1); Osmolality,Calculated 288.4 MOS/KG (273-304); Potassium 4.2 MMOL/L (3.5-5.1)
[2021-03-28 06:53] LABS: Atypical Lymphocytes Few; Band Neutrophils 2 % (0-10); Eosinophils 13 % (0-10); Lymphocytes 24 % (20-55); Metamyelocytes 1 %; Myelocytes 1 %; Segmented Neutrophils 24 % (50-85); Total Cells Counted 100
[2021-03-28 06:54] LABS: Hypochromia Slight; Macrocytosis Slight
[2021-03-28 06:55] LABS: Platelet Estimate Normal
[2021-03-28] MEDS ORDERED: BISACODYL 10 MG SUPP RECTAL ONE (09:00)
[2021-03-29] MEDS: DEXTROSE 5% NACL 0.45% 1,000 ML IV SCH ×3 (05:27→15:12)
[2021-03-29] MEDS: VALPROIC ACID INJ 250 MG in SODIUM CHLORIDE 0.9% 100 ML IV SCH ×2 (10:00→20:30)
[2021-03-29] MEDS: FAMOTIDINE 20 MG/2 ML VIAL IV SCH ×2 (10:04→20:32)
[2021-03-29] MEDS: ONDANSETRON 4 MG/2 ML VIAL IV PRN (18:38)
[2021-03-30] MEDS: ONDANSETRON 4 MG/2 ML VIAL IV PRN ×2 (02:52→17:14)
[2021-03-30 08:55] LABS: Basophils % 0.4 % (0.0-0.8); Eosinophils # 0.1 10*3/uL (0.0-0.87); Eosinophils % 2.8 % (0.00-10.9); Hematocrit 47.6 VOL% (42.0-52.0); Hemoglobin 15.4 GM/DL (14.0-18.0); Immature Granulocytes % 0.2 %; Immature Granulocytes Absolute 0.01 #; Lymphocytes # 0.6 10*3/uL (1.4-4.0); Mean Corpuscular HGB Conc 32.4 GM/DL (32-36); Mean Platelet Volume 10.2 FL (9.6-12.0); Monocytes % 28.7 % (1.7-12.7); Neutrophils % 54.9 % (38.7-73.9); Platelet Count 246 T/CUMM (130-400); Red Blood Count 5.01 MC/CUMM (3.8-5.5); Red Cell Distribution Width 14.6 % (9.3-17.3); White Blood Count 4.6 T/CUMM (4-12)
[2021-03-30 09:14] LABS: Band Neutrophils 6 % (0-10); Eosinophils 4 % (0-10); Lymphocytes 20 % (20-55); Platelet Estimate Adequate; Segmented Neutrophils 51 % (50-85); Total Cells Counted 100
[2021-03-30] MEDS: VALPROIC ACID INJ 250 MG in SODIUM CHLORIDE 0.9% 100 ML IV SCH ×2 (09:21→21:02)
[2021-03-30] MEDS: FAMOTIDINE 20 MG/2 ML VIAL IV SCH ×2 (09:26→22:03)
[2021-03-30 09:33] LABS: Albumin 3.2 G/DL (3.4-5.0); Bilirubin,Total 0.9 MG/DL (0.20-1.00); Calcium 9.6 MG/DL (8.5-10.1); Potassium 3.9 MMOL/L (3.5-5.1); Total Protein 7.4 G/DL (6.4-8.2)
[2021-03-30] MEDS: DEXTROSE 5% NACL 0.45% 1,000 ML IV SCH (11:23)
[2021-03-31] MEDS: ONDANSETRON 4 MG/2 ML VIAL IV PRN (01:37)
[2021-03-31] MEDS: DEXTROSE 5% NACL 0.45% 1,000 ML IV SCH (05:30)
[2021-03-31] MEDS: MORPHINE 2 MG/1 ML SYRINGE IV PRN (07:19)
[2021-03-31] MEDS: VALPROIC ACID INJ 250 MG in SODIUM CHLORIDE 0.9% 100 ML IV SCH ×2 (09:18→20:52)
[2021-03-31] MEDS: FAMOTIDINE 20 MG/2 ML VIAL IV SCH ×2 (09:21→20:51)
[2021-03-31] MEDS ORDERED: MINERAL OIL ENEMA 133 ML BOTTLE RECTAL ONE (13:00)
[2021-04-01] MEDS: DEXTROSE 5% NACL 0.45% 1,000 ML IV SCH ×2 (02:23→23:05)
[2021-04-01] MEDS: ONDANSETRON 4 MG/2 ML VIAL IV PRN (02:25)
[2021-04-01] MEDS ORDERED: diphenhydrAMINE 50 MG/1 ML VIAL IV ONE (03:26)
[2021-04-01] MEDS: MORPHINE 2 MG/1 ML SYRINGE IV PRN (03:38)
[2021-04-01] MEDS: VALPROIC ACID INJ 250 MG in SODIUM CHLORIDE 0.9% 100 ML IV SCH ×2 (10:48→20:18)
[2021-04-01] MEDS: FAMOTIDINE 20 MG/2 ML VIAL IV SCH ×2 (10:50→20:15)
[2021-04-01 21:13] VITALS: BP 139/83
[2021-04-02] MEDS: VALPROIC ACID INJ 250 MG in SODIUM CHLORIDE 0.9% 100 ML IV SCH (08:52)
[2021-04-02] MEDS: FAMOTIDINE 20 MG/2 ML VIAL IV SCH (08:56)
== END 2021-04-02 10:19 | disposition home or self-care (01) | DRG 389 ==
LOC: N.ED 08:58 → N.EDINP 11:01 → N.5E 15:24
PROVIDERS: ADMIT Surgery; ATTEND Surgery

== ENCOUNTER 2021-04-05 08:59 | Inpatient (IN) ==
[2021-04-05] MEDS ORDERED: SODIUM CHLORIDE 0.9% 500 ML IV STA ×3 (09:46→11:27)
[2021-04-05 10:18] LABS: Eosinophils % 0.2 % (0.00-10.9); Immature Granulocytes % 1.6 %; Immature Granulocytes Absolute 0.42 #; Lymphocytes # 1.5 10*3/uL (1.4-4.0); Lymphocytes % 5.7 % (21.2-54.2); Mean Corpuscular HGB Conc 35.4 GM/DL (32-36); Mean Platelet Volume 10.6 FL (9.6-12.0); Monocytes % 7.3 % (1.7-12.7); Neutrophils % 85.2 % (38.7-73.9); Platelet Count 416 T/CUMM (130-400); Red Blood Count 6.63 MC/CUMM (3.8-5.5); Red Cell Distribution Width 15.4 % (9.3-17.3); White Blood Count 25.9 T/CUMM (4-12)
[2021-04-05 10:24] LABS: Hemoglobin 20.2 GM/DL (14.0-18.0)
[2021-04-05 10:38] LABS: Albumin 3.7 G/DL (3.4-5.0); Bilirubin,Total 0.6 MG/DL (0.20-1.00); Calcium 8.9 MG/DL (8.5-10.1); Osmolality,Calculated 290.2 MOS/KG (273-304); Potassium 3.9 MMOL/L (3.5-5.1); Total Protein 8.5 G/DL (6.4-8.2)
[2021-04-05 10:42] LABS: Lymphocytes 1 % (20-55); Platelet Estimate Adequate; Segmented Neutrophils 91 % (50-85); Total Cells Counted 100
[2021-04-05] MEDS: PIPERACILLIN/TAZOBACTAM 3,375 MG in SODIUM CHLORIDE 0.9% 100 ML IV SCH ×2 (13:00→18:44)
[2021-04-05] MEDS ORDERED: DEXTROSE 50% 25 GM/50 ML SYRINGE IV PRN (13:24)
[2021-04-05] MEDS ORDERED: ONDANSETRON 4 MG/2 ML VIAL IV PRN (13:24)
[2021-04-05] MEDS ORDERED: SIMETHICONE CHEW 125 MG TABLET PO PRN (13:24)
[2021-04-05] MEDS ORDERED: GLUCAGON 1 MG VIAL IM PRN (13:24)
[2021-04-05 14:06] LABS: Basophils # 0.1 10*3/uL (0.0-0.2); Basophils % 0.4 % (0.0-0.8); Eosinophils % 0.1 % (0.00-10.9); Hematocrit 52.9 VOL% (42.0-52.0); Hemoglobin 18.3 GM/DL (14.0-18.0); Immature Granulocytes % 1.3 %; Immature Granulocytes Absolute 0.24 #; Lymphocytes # 0.9 10*3/uL (1.4-4.0); Lymphocytes % 4.8 % (21.2-54.2); Mean Corpuscular HGB Conc 34.6 GM/DL (32-36); Mean Corpuscular Volume 88.5 FL (87-102); Mean Platelet Volume 10.4 FL (9.6-12.0); Monocytes % 6.1 % (1.7-12.7); Neutrophils % 87.3 % (38.7-73.9); Platelet Count 353 T/CUMM (130-400); Red Blood Count 5.98 MC/CUMM (3.8-5.5); Red Cell Distribution Width 14.6 % (9.3-17.3)
[2021-04-05] MEDS: SODIUM CHLORIDE 0.9% 1,000 ML IV SCH (14:38)
[2021-04-05] MEDS ORDERED: VALPROIC ACID INJ 500 MG in SODIUM CHLORIDE 0.9% 100 ML IV STA (14:39)
[2021-04-05 14:50] LABS: Band Neutrophils 2 % (0-10); Lymphocytes 4 % (20-55); Platelet Estimate Normal; Segmented Neutrophils 88 % (50-85); Total Cells Counted 100
[2021-04-05 14:51] LABS: Hypochromia Slight
[2021-04-05] MEDS ORDERED: ACETAMINOPHEN 325 MG/10.15 ML UDCUP PO PRN (15:38)
[2021-04-05] MEDS ORDERED: VALPROIC ACID 250 MG/5 ML UDCUP PO SCH (21:00)
[2021-04-05] MEDS: VALPROIC ACID INJ 250 MG in SODIUM CHLORIDE 0.9% 100 ML IV SCH (23:27)
[2021-04-06] MEDS: SODIUM CHLORIDE 0.9% 1,000 ML IV SCH ×3 (05:09→22:13)
[2021-04-06] MEDS: PIPERACILLIN/TAZOBACTAM 3,375 MG in SODIUM CHLORIDE 0.9% 100 ML IV SCH ×3 (05:09→21:53)
[2021-04-06 05:23] LABS: Basophils % 0.3 % (0.0-0.8); Eosinophils # 0.1 10*3/uL (0.0-0.87); Eosinophils % 0.5 % (0.00-10.9); Hematocrit 49.2 VOL% (42.0-52.0); Hemoglobin 16.9 GM/DL (14.0-18.0); Immature Granulocytes % 1.1 %; Immature Granulocytes Absolute 0.17 #; Lymphocytes # 0.8 10*3/uL (1.4-4.0); Lymphocytes % 5.1 % (21.2-54.2); Mean Corpuscular HGB Conc 34.3 GM/DL (32-36); Mean Platelet Volume 10.5 FL (9.6-12.0); Monocytes % 9.2 % (1.7-12.7); Neutrophils % 83.8 % (38.7-73.9); Platelet Count 332 T/CUMM (130-400); Red Blood Count 5.53 MC/CUMM (3.8-5.5); Red Cell Distribution Width 14.6 % (9.3-17.3); White Blood Count 15.9 T/CUMM (4-12)
[2021-04-06 05:34] LABS: Calcium 8.3 MG/DL (8.5-10.1); Potassium 4.1 MMOL/L (3.5-5.1)
[2021-04-06] MEDS: PANTOPRAZOLE 40 MG VIAL IV SCH (08:11)
[2021-04-06 08:55] LABS: Bilirubin,Urine Negative (Negative); Blood, Urine Moderate mg/dL (Negative); Glucose,Urine (UA) Negative (Negative); Ketones,Urine Negative (Negative); Mucus,Urine Occasional /LPF (Occasional); Nitrite,Urine Negative (Negative); Protein,Urine Negative; RBC,Urine 3 /HPF (0-4); Squamous Epithelial Cell,Urine Few /HPF (0-10); Urine Appearance CLEAR (Clear); Urine Color Yellow (Yellow); Urine Specific Gravity 1.021 (1.001-1.035); Urine Urobilinogen < 2.0 EU/DL (<2.0)
[2021-04-06] MEDS: VALPROIC ACID INJ 250 MG in SODIUM CHLORIDE 0.9% 100 ML IV SCH ×2 (09:47→20:25)
[2021-04-07] MEDS: PIPERACILLIN/TAZOBACTAM 3,375 MG in SODIUM CHLORIDE 0.9% 100 ML IV SCH ×3 (04:49→20:37)
[2021-04-07 05:27] LABS: Basophils % 0.1 % (0.0-0.8); Eosinophils % 0.4 % (0.00-10.9); Hematocrit 44.4 VOL% (42.0-52.0); Immature Granulocytes % 0.6 %; Immature Granulocytes Absolute 0.06 #; Lymphocytes # 0.8 10*3/uL (1.4-4.0); Lymphocytes % 8.4 % (21.2-54.2); Mean Corpuscular HGB Conc 32.7 GM/DL (32-36); Mean Corpuscular Volume 94.1 FL (87-102); Mean Platelet Volume 10.1 FL (9.6-12.0); Monocytes % 10.3 % (1.7-12.7); Neutrophils % 80.2 % (38.7-73.9); Red Blood Count 4.72 MC/CUMM (3.8-5.5); Red Cell Distribution Width 15.1 % (9.3-17.3)
[2021-04-07 05:28] LABS: Hemoglobin 14.5 GM/DL (14.0-18.0); Platelet Count 256 T/CUMM (130-400); White Blood Count 9.6 T/CUMM (4-12)
[2021-04-07 05:45] LABS: Calcium 8.2 MG/DL (8.5-10.1); Osmolality,Calculated 278.8 MOS/KG (273-304); Potassium 4.2 MMOL/L (3.5-5.1)
[2021-04-07] MEDS: VALPROIC ACID 250 MG/5 ML UDCUP PO SCH ×2 (10:00→20:37)
[2021-04-07] MEDS: PANTOPRAZOLE 40 MG VIAL IV SCH (10:01)
[2021-04-07] MEDS: SIMETHICONE CHEW 80 MG TABLET PO PRN ×2 (12:57→20:48)
[2021-04-07] MEDS: VALPROIC ACID INJ 250 MG in SODIUM CHLORIDE 0.9% 100 ML IV SCH (13:56)
[2021-04-07] MEDS: SODIUM CHLORIDE 0.9% 1,000 ML IV SCH (13:56)
[2021-04-08] MEDS ORDERED: ACETAMINOPHEN 325 MG/10.15 ML UDCUP PO PRN (00:20)
[2021-04-08] MEDS: PIPERACILLIN/TAZOBACTAM 3,375 MG in SODIUM CHLORIDE 0.9% 100 ML IV SCH ×3 (04:35→22:31)
[2021-04-08 05:46] LABS: Calcium 8.4 MG/DL (8.5-10.1); Potassium 4.1 MMOL/L (3.5-5.1)
[2021-04-08] MEDS ORDERED: AMOXICILLIN/CLAV 875 MG TABLET PO SCH (09:00)
[2021-04-08] MEDS: VALPROIC ACID 250 MG/5 ML UDCUP PO SCH (09:30)
[2021-04-08] MEDS ORDERED: DEXTROSE 10% 250 ML BAG IV PRN ×2 (10:30)
[2021-04-08] MEDS ORDERED: PIPERACILLIN/TAZOBACTAM 3,375 MG in SODIUM CHLORIDE 0.9% 100 ML IV SCH (15:00)
[2021-04-08] MEDS: VALPROIC ACID INJ 250 MG in SODIUM CHLORIDE 0.9% 100 ML IV SCH (21:16)
[2021-04-09] MEDS: PIPERACILLIN/TAZOBACTAM 3,375 MG in SODIUM CHLORIDE 0.9% 100 ML IV SCH ×3 (04:16→21:22)
[2021-04-09 05:47] LABS: Basophils % 0.3 % (0.0-0.8); Eosinophils # 0.2 10*3/uL (0.0-0.87); Eosinophils % 2.4 % (0.00-10.9); Hematocrit 47.3 VOL% (42.0-52.0); Hemoglobin 15.5 GM/DL (14.0-18.0); Immature Granulocytes % 0.5 %; Immature Granulocytes Absolute 0.04 #; Lymphocytes % 13.1 % (21.2-54.2); Mean Corpuscular HGB Conc 32.8 GM/DL (32-36); Mean Corpuscular Volume 93.5 FL (87-102); Mean Platelet Volume 10.2 FL (9.6-12.0); Monocytes % 9.8 % (1.7-12.7); Neutrophils % 73.9 % (38.7-73.9); Platelet Count 261 T/CUMM (130-400); Red Blood Count 5.06 MC/CUMM (3.8-5.5); Red Cell Distribution Width 15.1 % (9.3-17.3); White Blood Count 7.4 T/CUMM (4-12)
[2021-04-09 06:47] LABS: Bilirubin,Total 0.7 MG/DL (0.20-1.00); Calcium 9.2 MG/DL (8.5-10.1); Potassium 4.3 MMOL/L (3.5-5.1); Total Protein 7.2 G/DL (6.4-8.2)
[2021-04-09] MEDS: AMOXICILLIN/CLAV ES 600 125 ML/BOTTLE PO SCH ×2 (09:48→20:12)
[2021-04-09] MEDS: VALPROIC ACID INJ 250 MG in SODIUM CHLORIDE 0.9% 100 ML IV SCH (09:49)
[2021-04-09] MEDS: VALPROIC ACID 250 MG/5 ML UDCUP PO SCH (20:11)
[2021-04-10 07:20] LABS: Basophils % 0.3 % (0.0-0.8); Eosinophils # 0.2 10*3/uL (0.0-0.87); Eosinophils % 1.5 % (0.00-10.9); Hematocrit 54.1 VOL% (42.0-52.0); Hemoglobin 17.7 GM/DL (14.0-18.0); Immature Granulocytes % 0.4 %; Immature Granulocytes Absolute 0.05 #; Lymphocytes # 1.2 10*3/uL (1.4-4.0); Lymphocytes % 10.5 % (21.2-54.2); Mean Corpuscular HGB Conc 32.7 GM/DL (32-36); Mean Platelet Volume 10.4 FL (9.6-12.0); Monocytes % 7.2 % (1.7-12.7); Neutrophils % 80.1 % (38.7-73.9); Platelet Count 321 T/CUMM (130-400); Red Blood Count 5.82 MC/CUMM (3.8-5.5); Red Cell Distribution Width 14.8 % (9.3-17.3); White Blood Count 11.7 T/CUMM (4-12)
[2021-04-10 07:53] LABS: Osmolality,Calculated 270.7 MOS/KG (273-304); Potassium 4.4 MMOL/L (3.5-5.1)
[2021-04-10] MEDS: VALPROIC ACID 250 MG/5 ML UDCUP PO SCH ×2 (09:19→21:05)
[2021-04-10] MEDS: SODIUM CHLORIDE 0.9% 1,000 ML IV SCH ×2 (09:19→17:59)
[2021-04-10] MEDS: AMOXICILLIN/CLAV ES 600 125 ML/BOTTLE PO SCH (09:19)
[2021-04-10] MEDS: PIPERACILLIN/TAZOBACTAM 3,375 MG in SODIUM CHLORIDE 0.9% 100 ML IV SCH ×2 (15:37→23:46)
[2021-04-11] MEDS: SODIUM CHLORIDE 0.9% 1,000 ML IV SCH ×3 (01:44→17:37)
[2021-04-11 05:40] LABS: Basophils % 0.2 % (0.0-0.8); Eosinophils # 0.2 10*3/uL (0.0-0.87); Eosinophils % 1.6 % (0.00-10.9); Hematocrit 44.7 VOL% (42.0-52.0); Hemoglobin 14.4 GM/DL (14.0-18.0); Immature Granulocytes % 0.4 %; Immature Granulocytes Absolute 0.05 #; Lymphocytes # 1.4 10*3/uL (1.4-4.0); Lymphocytes % 11.6 % (21.2-54.2); Mean Corpuscular HGB Conc 32.2 GM/DL (32-36); Mean Corpuscular Volume 94.9 FL (87-102); Mean Platelet Volume 10.2 FL (9.6-12.0); Monocytes % 9.5 % (1.7-12.7); Neutrophils % 76.7 % (38.7-73.9); Platelet Count 300 T/CUMM (130-400); Red Blood Count 4.71 MC/CUMM (3.8-5.5); Red Cell Distribution Width 14.6 % (9.3-17.3); White Blood Count 11.6 T/CUMM (4-12)
[2021-04-11 05:54] LABS: Alanine Aminotransferase 31 U/L (16-61); Albumin 2.4 G/DL (3.4-5.0); Alkaline Phosphatase 112 U/L (45-117); Aspartate Amino Transferase 17 U/L (0-37); Bilirubin,Total < 0.39 MG/DL (0.20-1.00); Blood Urea Nitrogen 29 MG/DL (7-18); Calcium 8.6 MG/DL (8.5-10.1); Carbon Dioxide 29 MMOL/L (21-32); Estimated Glom Filtration Rate 99 ML/MIN; Glucose 102 MG/DL (74-106); Osmolality,Calculated 278.8 MOS/KG (273-304); Potassium 4.9 MMOL/L (3.5-5.1); Sodium 137 MMOL/L (136-145); Total Protein 6.5 G/DL (6.4-8.2)
[2021-04-11] MEDS: PIPERACILLIN/TAZOBACTAM 3,375 MG in SODIUM CHLORIDE 0.9% 100 ML IV SCH ×2 (06:01→17:38)
[2021-04-11 06:03] LABS: Free T4 (Free Thyroxine) 1.03 NG/DL (0.76-1.46); Thyroid Stimulating Hormone 4.13 uIU/ml (0.358-3.74)
[2021-04-11] MEDS: VALPROIC ACID 250 MG/5 ML UDCUP PO SCH ×2 (08:16→21:35)
[2021-04-11] MEDS: MONTELUKAST CHEW 5 MG TABLET PO PRN (17:38)
[2021-04-12] MEDS: PIPERACILLIN/TAZOBACTAM 3,375 MG in SODIUM CHLORIDE 0.9% 100 ML IV SCH ×3 (02:15→16:18)
[2021-04-12 08:47] LABS: Basophils % 0.4 % (0.0-0.8); Eosinophils # 0.2 10*3/uL (0.0-0.87); Eosinophils % 1.8 % (0.00-10.9); Hematocrit 40.2 VOL% (42.0-52.0); Hemoglobin 12.8 GM/DL (14.0-18.0); Immature Granulocytes % 0.4 %; Immature Granulocytes Absolute 0.03 #; Lymphocytes # 1.1 10*3/uL (1.4-4.0); Lymphocytes % 12.6 % (21.2-54.2); Mean Corpuscular HGB Conc 31.8 GM/DL (32-36); Mean Corpuscular Volume 95.9 FL (87-102); Monocytes % 8.7 % (1.7-12.7); Neutrophils % 76.1 % (38.7-73.9); Platelet Count 309 T/CUMM (130-400); Red Blood Count 4.19 MC/CUMM (3.8-5.5); White Blood Count 8.5 T/CUMM (4-12)
[2021-04-12 09:04] LABS: Calcium 8.8 MG/DL (8.5-10.1); Osmolality,Calculated 279.5 MOS/KG (273-304); Potassium 4.7 MMOL/L (3.5-5.1)
[2021-04-12] MEDS: VALPROIC ACID 250 MG/5 ML UDCUP PO SCH ×2 (09:23→22:04)
[2021-04-12] MEDS: CETIRIZINE 1 MG/ML 30 ML/BOTTLE PO SCH (22:04)
[2021-04-13] MEDS: PIPERACILLIN/TAZOBACTAM 3,375 MG in SODIUM CHLORIDE 0.9% 100 ML IV SCH ×3 (01:35→17:30)
[2021-04-13 05:15] LABS: Basophils % 0.3 % (0.0-0.8); Eosinophils # 0.1 10*3/uL (0.0-0.87); Eosinophils % 2.2 % (0.00-10.9); Hematocrit 35.9 VOL% (42.0-52.0); Hemoglobin 11.3 GM/DL (14.0-18.0); Immature Granulocytes % 0.3 %; Immature Granulocytes Absolute 0.02 #; Lymphocytes # 1.4 10*3/uL (1.4-4.0); Lymphocytes % 22.3 % (21.2-54.2); Mean Corpuscular HGB Conc 31.5 GM/DL (32-36); Mean Corpuscular Volume 97.3 FL (87-102); Mean Platelet Volume 10.3 FL (9.6-12.0); Monocytes % 12.4 % (1.7-12.7); Neutrophils % 62.5 % (38.7-73.9); Platelet Count 300 T/CUMM (130-400); Red Blood Count 3.69 MC/CUMM (3.8-5.5); Red Cell Distribution Width 15.1 % (9.3-17.3); White Blood Count 6.5 T/CUMM (4-12)
[2021-04-13 05:48] LABS: Calcium 8.5 MG/DL (8.5-10.1); Osmolality,Calculated 283.3 MOS/KG (273-304); Potassium 4.5 MMOL/L (3.5-5.1)
[2021-04-13] MEDS ORDERED: MAGNESIUM SULF RIDER 2 GM/50 ML PREMIX IV ONE (07:59)
[2021-04-13] MEDS: VALPROIC ACID 250 MG/5 ML UDCUP PO SCH ×2 (09:26→21:54)
[2021-04-13] MEDS ORDERED: MAGNESIUM CHLORIDE 64 MG TABLET PO SCH (10:00)
[2021-04-13] MEDS: MONTELUKAST CHEW 5 MG TABLET PO PRN (13:37)
[2021-04-13] MEDS ORDERED: ALBUTEROL 2.5 MG/3 ML NEB RESP TX SCH (19:00)
[2021-04-13] MEDS: CETIRIZINE 1 MG/ML 30 ML/BOTTLE PO SCH (21:54)
[2021-04-14] MEDS: PIPERACILLIN/TAZOBACTAM 3,375 MG in SODIUM CHLORIDE 0.9% 100 ML IV SCH ×3 (01:21→16:25)
[2021-04-14 05:27] LABS: Basophils % 0.2 % (0.0-0.8); Eosinophils # 0.2 10*3/uL (0.0-0.87); Eosinophils % 2.7 % (0.00-10.9); Hematocrit 36.6 VOL% (42.0-52.0); Hemoglobin 11.5 GM/DL (14.0-18.0); Immature Granulocytes % 0.3 %; Immature Granulocytes Absolute 0.02 #; Lymphocytes # 1.5 10*3/uL (1.4-4.0); Lymphocytes % 25.5 % (21.2-54.2); Mean Corpuscular HGB Conc 31.4 GM/DL (32-36); Mean Corpuscular Volume 96.6 FL (87-102); Mean Platelet Volume 10.3 FL (9.6-12.0); Monocytes % 12.3 % (1.7-12.7); Platelet Count 343 T/CUMM (130-400); Red Blood Count 3.79 MC/CUMM (3.8-5.5); Red Cell Distribution Width 15.2 % (9.3-17.3)
[2021-04-14 05:30] LABS: Osmolality,Calculated 277.7 MOS/KG (273-304); Potassium 4.9 MMOL/L (3.5-5.1)
[2021-04-14] MEDS: VALPROIC ACID 250 MG/5 ML UDCUP PO SCH ×2 (08:54→21:29)
[2021-04-14] MEDS: MAGNESIUM GLUCONATE 200 MG/ML 30 ML/BOTTLE PO SCH (08:55)
[2021-04-14] MEDS: CETIRIZINE 1 MG/ML 30 ML/BOTTLE PO SCH (21:29)
[2021-04-15] MEDS: PIPERACILLIN/TAZOBACTAM 3,375 MG in SODIUM CHLORIDE 0.9% 100 ML IV SCH ×2 (01:02→08:35)
[2021-04-15 07:09] LABS: Basophils % 0.2 % (0.0-0.8); Eosinophils # 0.2 10*3/uL (0.0-0.87); Eosinophils % 2.8 % (0.00-10.9); Hematocrit 38.2 VOL% (42.0-52.0); Hemoglobin 12.2 GM/DL (14.0-18.0); Immature Granulocytes % 0.2 %; Immature Granulocytes Absolute 0.01 #; Lymphocytes # 1.4 10*3/uL (1.4-4.0); Lymphocytes % 26.1 % (21.2-54.2); Mean Corpuscular HGB Conc 31.9 GM/DL (32-36); Mean Corpuscular Volume 96.5 FL (87-102); Mean Platelet Volume 9.9 FL (9.6-12.0); Monocytes % 9.9 % (1.7-12.7); Neutrophils % 60.8 % (38.7-73.9); Platelet Count 364 T/CUMM (130-400); Red Blood Count 3.96 MC/CUMM (3.8-5.5); Red Cell Distribution Width 14.9 % (9.3-17.3); White Blood Count 5.4 T/CUMM (4-12)
[2021-04-15 07:30] LABS: Osmolality,Calculated 278.7 MOS/KG (273-304); Potassium 4.7 MMOL/L (3.5-5.1)
[2021-04-15] MEDS: VALPROIC ACID 250 MG/5 ML UDCUP PO SCH (08:35)
[2021-04-15] MEDS: MAGNESIUM GLUCONATE 200 MG/ML 30 ML/BOTTLE PO SCH (08:35)
[2021-04-15 12:17] VITALS: BP 134/82
== END 2021-04-15 12:55 | disposition home health service (06) | DRG 871 ==
LOC: N.ED 08:59 → N.EDINP 11:25 → SUATTDRO 11:25 → N.5E 17:32
PROVIDERS: ADMIT Internal Medicine; ATTEND Internal Medicine